=== PATIENT | female | born 1950 | race Two or more races ===

== ENCOUNTER → 2019-12-13 | Outpatient (REF) | payer MEDICARE, MEDICAID ==
[2019-12-13 19:11] LABS: BASO # 0.1 10^3/uL (0.0-0.2); BASO % 0.8 % (0.0-1.0); EOS # 0.2 10^3/uL (0.0-0.5); EOS % 3.3 % (0.0-3.0); HEMOGLOBIN 13.7 g/dl (12.0-15.5); LYMPH # 2.3 10^3/uL (1.5-5.0); LYMPH % 36.2 % (24.0-44.0); MEAN CORPUSCULAR HEMOGLOBIN 26.4 pg (27.0-33.0); MEAN CORPUSCULAR HGB CONC 31.9 g/dl (32.0-36.5); MONO # 0.6 10^3/uL (0.0-0.8); MONO % 8.5 % (0.0-5.0); NEUTROPHILS # 3.3 10^3/uL (1.5-8.5); PLATELET COUNT, AUTOMATED 324 10^3/uL (150-450); RED BLOOD COUNT 5.18 10^6/uL (4.00-5.40); WHITE BLOOD COUNT 6.4 10^3/uL (4.0-10.0)
[2019-12-13 19:28] LABS: HEMOGLOBIN A1c 7.7 %
[2019-12-13 19:44] LABS: ALBUMIN 3.8 GM/DL (3.2-5.2); ALT/SGPT 18 U/L (12-78); BILIRUBIN,TOTAL 0.3 MG/DL (0.2-1.0); BLOOD UREA NITROGEN 21 MG/DL (7-18); C REACTIVE PROTEIN QUANTITATIV < 0.30 MG/DL (0.00-0.30); CALCIUM LEVEL 9.4 MG/DL (8.8-10.2); CARBON DIOXIDE LEVEL 29 MEQ/L (21-32); CHLORIDE LEVEL 105 MEQ/L (98-107); FREE T4 1.56 NG/DL (0.76-1.46); GLOMERULAR FILTRATION RATE > 60.0 (>39); GLUCOSE, FASTING 181 MG/DL (70-100); POTASSIUM SERUM 4.8 MEQ/L (3.5-5.1); SODIUM LEVEL 138 MEQ/L (136-145); THYROID STIMULATING HORMONE 0.122 uIU/ML (0.358-3.740); TOTAL PROTEIN 7.4 GM/DL (6.4-8.2)
[2019-12-13 19:55] LABS: ERYTHROCYTE SEDIMENTATION RATE 6 mm/hr (0-30)
== END ==
LOC: M SFHCADAM 16:23
PROVIDERS: ATTEND Family Medicine
DX: R61 Generalized hyperhidrosis (principal); E11.9 Type 2 diabetes mellitus without complications; R53.83 Other fatigue; R51 Headache; E03.9 Hypothyroidism, unspecified

== ENCOUNTER → 2019-12-13 | Outpatient (CLI) | payer MEDICARE, MEDICAID ==
--- NOTE | 2019-12-18 14:57 | REP ---
Clinical: Nine sweats . Comparison: None . Technique: PA and lateral. Findings: The mediastinum and cardiac silhouette are normal. The lung varghese demonstrate chronic-appearing interstitial changes without focal consolidation, effusion, or pneumothorax. The skeletal structures are intact and normal. Impression: 1. Chronic-appearing changes are suggested. No obvious focal consolidation or effusion. 2. No prior examinations are available for comparison, and if the patient remains symptomatic consider chest CT for further investigation. Electronically Signed by Quique Miranda MD 12/18/2019 02:48 P
== END ==
LOC: M ADAMS 16:11
PROVIDERS: ATTEND Family Medicine
DX: R61 Generalized hyperhidrosis (principal); E11.9 Type 2 diabetes mellitus without complications; R53.83 Other fatigue; R51 Headache; E03.9 Hypothyroidism, unspecified
CPT/HCPCS: 71046; 80053; 83036; 84439; 84443; 85025; 85652; 86140; 86480; G0463

== ENCOUNTER → 2020-01-03 | Outpatient (CLI) | payer MEDICARE, MEDICAID ==
--- NOTE | 2020-01-03 12:29 | REP ---
CT brain: 01/03/2020. Indication: Headache. Technique: Unenhanced axial CT images of the brain were obtained from skull base to vertex with coronal reconstructions provided. Comparison: None. Findings: There is no acute intracranial hemorrhage, acute cortical infarction, mass effect, hydrocephalus or significant fluid within the visualized paranasal sinuses/mastoid air cells. Mild periosteal mucosal thickening is noted within the visualized maxillary sinuses. There are a few small patchy areas of cerebral hemisphere white matter hypoattenuation most consistent with chronic small vessel disease. Impression: No acute intracranial process. Electronically Signed by Carlos Alberto Juarez DO 01/03/2020 12:20 P
== END ==
LOC: M RAD 11:08
PROVIDERS: ATTEND Family Medicine
DX: R51 Headache (principal)
CPT/HCPCS: 70450; G0463

== ENCOUNTER 2020-08-08 02:23 | Emergency (ER) | payer MEDICARE, MEDICAID ==
[~2020-08-08] VITALS: Ht 162.6 cm; Wt 70.9 kg
[2020-08-08 02:23] VITALS: BP 107/53
--- OUTSIDE RECORDS SUMMARY | 2020-08-08 02:30 | CCD ---
Author Author [email or web address] Organization [facility] Address [address] [place] [address] Phone Care Team Providers Care Brick Veneer Maker Name Role Phone Provider, Unassigned Unavailable Unavailable Reason for Referral No Reason for Referral Recorded Problems Includes: Active, inactive, and resolved Problems All Visits Effective Date(s) Provider Condition Stat us Diabetes Mellitus 08/07/[address] [facility] Active Dry Eye Syndrome 08/07/[address] [facility] Active Hypothyroidism 08/07/[address] [facility] Active Plan of Treatment Future Appointments Date Time Location Provider Adult Prophy 12/07/2020 4:25PM [facility] Kacy steiner [facility] Assessments Includes: Assessments for all patient encountersNo Assessments Recorded Instructions Instructions not supported for this document typeNo Instructions Recorded Medical Equipment - Implanted Devices Includes: Current and historical DevicesNo Medical Equipment Recorded Medications Includes: Current and historical Medications Current Medications (continue as prescribed) Peridex 0.12% Mouth/Throat Solution 03/06/2020 - 07/04/2020 Provider: Kaylee Smith DDS Diagnosis: take 1/2 oz swish for 30 seconds and spi t out. Do once in the morning and once at night. SF 1.1% Dental Gel 019 Provider: Neda Salazar DDS Diagnosis: brush 1 per day , do not rinse after Levothyroxine Sodium 150MCG Oral Tablet 08/07/2018 Provider: Diagnosis: Gabapentin 100MG Oral Capsule 08/07/2018 Provider: Diagnosis: ALPRAZolam 0.25MG Oral Tablet 08/07/2018 Provider: Diagnosis: Omeprazole 40MG Oral Capsule Delayed Release 08/07/2018 Provider: Diagnosis: ProAir HFA 108 (90 Base)MCG/ACT Inhalation Aerosol Solution 08/07/2018 Provider: Diagnosis: Ammonium Lactate 12% External Cream 08/07/2018 Prov ider: Diagnosis: [facility] Artificial Tears 1-0.3% Ophthalmic Solution 08/07/2018 Provider: Diagnosis: Patanol 0.1% Ophthalmic Solution 08/07/2018 Provide r: Diagnosis: uses generic olopatadine HCL Chlorhexidine Gluconate 0.12% Mouth/Throat Solution 08/07/19 19 Provider: Neda Salazar DDS Diagnosis: rinse 1 times a day MetFORMIN HCl 1000MG Oral Tablet 08/07/2018 Provide r: Diagnosis: GlipiZIDE XL 10MG Oral Tablet Extended Release 24 Hour 08/07 Provider: Diagnosis: Medications Administered Includes: Administered Medications in patient's chartNo Administered Medications Recorded Vital Signs Includes: Vital Signs from 05/28/2019 through 05/28/2020No Vital Signs Recorded For Specified Dates Results Includes: Results from 05/28/2019 through 05/28/2020No Results Recorded For Specified Dates History of Present Illness History of Present Illness not supported for this document typeNo History of Present Illness Recorded Social History Description Last Updated Smoking status : Never smoker 08/07/2018 Procedures and Surgical/Medical History Includes: Procedures from 05/28/2019 through 05/28/2020 Procedures CPT-4 Diagnosis Performing Provider Service Location Service Date Nutritional Counseling D1310 Encounter for den bonita exam and cleaning w/o abnormal findings Wanda Martinez [facility] 05/28/2020 Oral Hygiene/John Inst D1330 Encounter for de ntal exam and cleaning w/o abnormal findings Wanda Martinez [facility] 05/28/2020 Full Mouth Debridement D4355 Encounter for den bonita exam and cleaning w/o abnormal findings Wanda Martinez [facility] 05/28/2020 Limited Oral Evaluation D0140 Encounter for de ntal exam and cleaning w[facility]o abnormal [facility] Family History Includes: Family History in patient's chartNo Family History Recorded Review of Systems Review of Systems not supported for this document typeNo Review of Systems Recorded Mental Status Mental Status not supported for this document typeNo Mental Status Recorded Functional Status Functional Status not supported for this document typeNo Functional Status Recorded Physical Exam Physical Exam not supported for this document typeNo Physical Exam Recorded Immunizations Includes: Immunizations in patient's chartNo Immunizations Recorded Allergies Includes: Active, inactive, and resolved AllergiesNo Allergies Recorded Encounters Includes: Encounters from 05/28/2019 through 05/28/2020 Encounter Provider Location Date Diagnosis H Adult Prophy Wanda Martinez [facility] 05/28/2020 D Dental Office Visit - 30 Kaylee Smith DDS [facility] 03/06/20 20 Insurance Includes: Active Insurance Policies Plan Name Member ID Group # Subscriber Relationship Effective Da praful 1 - D [facility] Dual Complete [id number] Vickie Trejo Peace Aliya f 11/21/2018 - Unknown 2 - [employer] 414 [id number] Vickie Agaib y Peace Self 3 - [employer] Medicare [id number] Vickie Agaiby Peace Self Advance Directives Includes: Current Advance Directives Directive Pat Aware Third Green Party Effective Date Reviewed Status packet given Pt Bill of Rights, Priv Prac, Ad Dir Yes 09/07/2018 Current and Verified Note: Pt accepted AD packet Ebola Screening Performed Yes 05/28/2020 Current and Verified Note: Within the last month, have you traveled outside of the [place]? - NO Health Concerns Includes: Active Health ConcernsNo Active Health Concerns Recorded Goals Includes: Active GoalsNo Active Goals Recorded Interventions Includes: Interventions for active GoalsNo Interventions Recorded Evaluations & Outcomes Includes: Evaluations & Outcomes for active GoalsNo Outcomes Recorded
--- OUTSIDE RECORDS SUMMARY | 2020-08-08 02:30 | CCD ---
Author Author 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 97805 8001 ALLERGIES No Known Allergies ENCOUNTERS from 1950 to 2020-06-16 Encounter Location Date Provider Diagnosis [address] [address] May, Lyric Odette-Tartell IMMUNIZATIONS No Information SOCIAL HISTORY Tobacco Use: Social History Observation Description Date Details (start date - stop date) Never Smoker Sex Assigned At : Social History Observation Description Sex Assigned At Unknown Audit Question Answer Notes Total Score: 0 Interpretation: Alcohol Education Drug and Alcohol Question Answer Notes Total Score: 0 Interpretation: No problems reported Alcohol Screening: Question Answer Notes Did you have a drink containing alcohol in the past year? No Points 0 Interpretation Negative Tobacco Use: Question Answer Notes Are you a: never smoker REASON FOR REFERRAL No Information VITAL SIGNS No information MEDICATIONS Medication SIG (Take, Route, Frequency, Duration) Notes Start Da te End Date Status Omeprazole 40 MG 1 capsule 30 minutes before morning meal Orally Once a day for 30 day(s) Active Ferrous Gluconate 324 (38 Fe) MG 1 tablet with water o r juice between meals Orally Once a day for 90 days Ac tive Amitriptyline HCl 25 MG 1 tablet at bedtime Orally Once a day fo r 30 day(s) Jan, Active Vitamin D 50 MCG (1999 UT) 1 capsule Orally Once a day for 30 day(s) Active Gabapentin 100 MG 1 capsule Orally Once a day for 90 days Active Levothyroxine Sodium 125 MCG 1 tablet in the morning o n an empty stomach Orally Once a day for 90 days November, Active Metformin HCl 1000 MG 1 tablet with a meal Orally bid for 90 days Active Sucralfate 1 GM 1 tablet on an empty stomach Orally four times daily Active Blood Glucose Test - 1 strip In Vitro twice daily Active Januvia 50 MG 1 tablet Orally Daily for 90 days Active GlipiZIDE 10 MG 1 tablet 30 minutes before b reakfast Orally twice daily for 90 days Active Simvastatin 20 MG 1 tablet in the evening Orally Once a day for 90 da ys Active PROCEDURES No Information RESULTS No Results REASON FOR VISIT dizzy/swaety MEDICAL (GENERAL) HISTORY Type Description Date Medical History diabetes mellitus type 2 Medical History hyperlipidemia Medical History hypothyroidism Medical History iron deficiency Surgical History cataracts, bilat Surgical History retina surgery on the R (detachment) Goals Section No Information Health Concerns No Information MEDICAL EQUIPMENT No Information MENTAL STATUS No Information FUNCTIONAL STATUS No Information ASSESSMENTS No Information PLAN OF TREATMENT Medication Medication Name Sig Start Date Stop Date GlipiZIDE 10 MG 1 tablet 30 minutes before b reakfast Orally twice daily for 90 days Januvia 50 MG 1 tablet Orally Daily for 90 days Gabapentin 100 MG 1 capsule Orally Once a day for 90 days Levothyroxine Sodium 125 MCG 1 tablet in the morning o n an empty stomach Orally Once a day for 90 days November, Metformin HCl 1000 MG 1 tablet with a meal Orally bid for 90 day s Simvastatin 20 MG 1 tablet in the evening Orally Once a day for 90 days Amitriptyline HCl 25 MG 1 tablet at bedtime Orally Once a da y for 30 day(s) Jan, Ferrous Gluconate 324 (38 Fe) MG 1 tablet with water o r juice between meals Orally Once a day for 90 days Insurance Providers Payer Name Payer Address Payer Phone Insured Name Patient Relati onship to Insured Coverage Start Date Coverage End Date [facility] [address] [facility] [address] PEACE,HAYDEE self MEDICAID [facility] [address] [facility] [id number] [phone] PEACE,HAYDEE self
--- OUTSIDE RECORDS SUMMARY | 2020-08-08 02:30 | CCD ---
Author Author [facility] Organization [facility] [employer] [facility] [facility] Address Unknown Phone Unavailable Care Team Providers Care Cabin Worker Name Role Phone Odette-Tartell, Lyric Unavailable PROBLEMS Type Condition ICD9-CM Code [id number] Code Onset Dates Condition S tatus SNOMED Code Notes Problem Depression, unspecified depression type F32.9 Active 99114522 Problem Insomnia, unspecified type G47.00 Active 31754 2000 Problem Diabetes mellitus type 2 in nonobese E11.9 Act andrea 749450307 Problem Hypothyroidism, unspecified type E03.9 Active 66128192 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 33738 8001 ALLERGIES No Known Allergies ENCOUNTERS from 1950 to 2020-08-06 Encounter Location Date Provider Diagnosis [facility] [address] [place] [address] 14 Jul, Lyric Odette-Tartell IMMUNIZATIONS No Information SOCIAL HISTORY [...] day fo r 30 day(s) Jan, Active Metformin HCl 1000 MG 1 tablet with a meal Orally bid for 90 days Active Gabapentin 100 MG 1 capsule Orally Once a day for 90 days Active Levothyroxine Sodium 125 MCG 1 tablet in the morning o n an empty stomach Orally Once a day for 90 days November, Active Vitamin D 50 MCG (1999 UT) 1 capsule Orally Once a day for 90 day(s) Active Sucralfate 1 GM 1 tablet on [...] Information RESULTS No Results REASON FOR VISIT refill MEDICAL (GENERAL) HISTORY Type Description Date Medical [...] Once a day for 90 days November, Amitriptyline HCl 25 MG 1 tablet at bedtime Orally Once a da y for 30 day(s) Jan, Vitamin D 50 MCG (1999 UT) 1 capsule Orally Once a day for 90 da y(s) Simvastatin 20 MG 1 tablet in the evening Orally Once a day for 90 days Metformin HCl 1000 MG 1 tablet with a meal Orally bid for 90 day s Ferrous Gluconate 324 (38 Fe) MG 1 tablet with water o r juice between meals Orally Once a day for 90 days Insurance Providers Payer Name Payer Address Payer Phone Insured Name Patient Relati onship to Insured Coverage Start Date Coverage End Date [facility] [address] [facility] [id number] PEACESAMIRA self MEDICAID [employer] [address] [facility] [id number] HAYDEE PLUNKETT self
--- OUTSIDE RECORDS SUMMARY | 2020-08-08 02:30 | CCD ---
Author Author [facility] Organization [facility] [employer] [facility]st ems Address Unknown Phone Unavailable Care Team Providers Care Rehab Therapist Name Role Phone Odette-Tartell, Lyric Unavailable PROBLEMS Type Condition ICD9-CM Code [id number] Code Onset Dates Condition S tatus SNOMED Code Notes Problem Depression, unspecified depression type F32.9 Active 98637308 Problem Insomnia, unspecified type G47.00 Active 49772 2000 Problem Diabetes mellitus type 2 in nonobese E11.9 Act andrea 684649921 Problem Hypothyroidism, unspecified type E03.9 Active 35098354 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
--- OUTSIDE RECORDS SUMMARY | 2020-08-08 02:30 | CCD ---
Author Author [employer] [facility] Organization [employer] [facility] Address Unknown Phone Unavailable Care Team Providers Care State Trooper Name Role Phone Lyric Perdomo Unavailable PROBLEMS Type Condition ICD9-CM Code [id number] Code Onset Dates Condition S tatus SNOMED Code Notes Problem Depression, unspecified depression type F32.9 Active 52195242 Problem Insomnia, unspecified type G47.00 Active 81189 2000 Problem Diabetes mellitus type 2 in nonobese E11.9 Act andrea 784927547 Problem Hypothyroidism, unspecified type E03.9 Active 20527775 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 [address] [facility] [id number] PEACE,SAMIRA self MEDICAID [employer] [address] [facility] [address] HAYDEE PLUNKETT
--- OUTSIDE RECORDS SUMMARY | 2020-08-08 02:31 | CCD ---
Author Author [facility] Address Unknown Phone Unavailable Care Team Providers Care Replenishment Associate Name Role Phone Cassius Jc MD Unavailable Unavailable Saini Cassius Snowden MD Unavailable Unavailable Saini Cassius Snowden MD Unavailable Unavailable Saini Isi, Cassius Aguayo MD Unavailable Unavailable Cassius Jc MD Unavailable Unavailable Saini Isi, Cassius Aguayo MD Unavailable Unavailable Saini Isi, Cassius Aguayo MD Unavailable Unavailable Saini Cassius Snowden MD Unavailable Unavailable Saini Isi, Cassius Aguayo MD Unavailable Unavailable Parveen Snowden, Cassius Aguayo MD Unavailable Unavailable Cassius Jc MD Unavailable Unavailable Parveen Snowden, Cassius Aguayo MD Unavailable Unavailable Saini Isi, Cassius Aguayo MD Unavailable Unavailable Saini Isi, Cassisu Aguayo MD Unavailable Unavailable Parveen Snowden, Cassius Aguayo MD Unavailable Unavailable Parveen Snowden, Cassius Aguayo MD Unavailable Unavailable Parveen Snowden, Cassius Aguayo MD Unavailable Unavailable Saini Isi, Cassius Aguayo MD Unavailable Unavailable Saini Dator, Cassius Aguayo MD Unavailable Unavailable Saini Dator, Cassius Aguayo MD Unavailable Unavailable Saini Dator, Cassius Aguayo MD Unavailable Unavailable Saini Dator, Cassius Aguayo MD Unavailable Unavailable Saini Dator, Cassius Aguayo MD Unavailable Unavailable Saini Dator, Cassius Aguayo MD Unavailable Unavailable Saini Dator, Cassius Aguayo MD Unavailable Unavailable Saini Dator, Cassius Aguayo MD Unavailable Unavailable Saini Dator, Cassius Aguayo MD Unavailable Unavailable Saini Dator, Cassius Aguayo MD Unavailable Unavailable Saini Dator, Cassius Aguayo MD Unavailable Unavailable Saini Dator, Cassius Aguayo MD Unavailable Unavailable Saini Dator, Cassius Aguayo MD Unavailable Unavailable Saini Dator, Cassius Aguayo MD Unavailable Unavailable Saini Dator, Cassius Aguayo MD Unavailable Unavailable Saini Dator, Cassius Aguayo MD Unavailable Unavailable Saini Dator, Cassius Aguayo MD Unavailable Unavailable Saini Dator, Cassius Aguayo MD Unavailable Unavailable Saini Dator, Cassius Aguayo MD Unavailable Unavailable Saini Dator, Cassius Aguayo MD Unavailable Unavailable Saini Dator, Cassius Aguayo MD Unavailable Unavailable Saini Dator, Cassius Aguayo MD Unavailable Unavailable Saini Dator, Cassius Aguayo MD Unavailable Unavailable Saini Dator, Cassius Aguayo MD Unavailable Unavailable Saini Dator, Cassius Aguayo MD Unavailable Unavailable Saini Dator, Cassius Aguayo MD Unavailable Unavailable Saini Dator, Cassius Aguayo MD Unavailable Unavailable Saini Dator, Cassius Aguayo MD Unavailable Unavailable Saini Dator, Cassius Aguayo MD Unavailable Unavailable Saini Dator, Cassius Aguayo MD Unavailable Unavailable Saini Dator, Cassius Aguayo MD Unavailable Unavailable Saini Dator, Cassius Aguayo MD Unavailable Unavailable Saini Dator, Cassius Aguayo MD Unavailable Unavailable Saini Dator, Cassius Aguayo MD Unavailable Unavailable Linda Leo Unavailable Unavail able Linda Leo Unavailable Unavail able Porfirio Bang MD Unavailable Unavailable Porfirio Bang MD Unavailable Unavailable Porfirio Bang MD Unavailable Unavailable Porfirio Bang MD Unavailable Unavailable Porfirio Bang MD Unavailable Unavailable Porfirio Bang MD Unavailable Unavailable Porfirio Bang MD Unavailable Unavailable Porfirio Bang MD Unavailable Unavailable Porfirio Bang MD Unavailable Unavailable Porfirio Bang MD Unavailable Unavailable Michelle [facility], [place] Unavailable Saini Dator, Cassius Aguayo MD Unavailable Unavailable Saini Dator, Cassius Aguayo MD Unavailable Unavailable Saini Dator, Cassius Aguayo MD Unavailable Unavailable Saini Dator, Cassius Aguayo MD Unavailable Unavailable Saini Dator, Cassius Aguayo MD Unavailable Unavailable Saini Dator, Cassius Aguayo MD Unavailable Unavailable Saini Dator, Cassius Aguayo MD Unavailable Unavailable Saini Dator, Cassius Aguayo MD Unavailable Unavailable Saini Dator, Cassius Aguayo MD Unavailable Unavailable Saini Dator, Cassius Aguayo MD Unavailable Unavailable Saini Dator, Cassius Aguayo MD Unavailable Unavailable Saini Dator, Cassius Aguayo MD Unavailable Unavailable Saini Dator, Cassius Aguayo MD Unavailable Unavailable Saini Dator, Cassius Aguayo MD Unavailable Unavailable Saini Dator, Cassius Aguayo MD Unavailable Unavailable Saini Dator, Cassius Aguayo MD Unavailable Unavailable Saini Dator, Cassius Aguayo MD Unavailable Unavailable Saini Dator, Cassius Aguayo MD Unavailable Unavailable Saini Dator, Cassius Aguayo MD Unavailable Unavailable Saini Dator, Cassius Aguayo MD Unavailable Unavailable Saini Dator, Cassius Aguayo MD Unavailable Unavailable Saini Dator, Cassius Aguayo MD Unavailable Unavailable Saini Dator, Cassius Aguayo MD Unavailable Unavailable Saini Dator, Cassius Aguayo MD Unavailable Unavailable Saini Dator, Cassius Aguayo MD Unavailable Unavailable Saini Dator, Cassius Aguayo MD Unavailable Unavailable Saini Dator, Cassius Aguayo MD Unavailable Unavailable Saini Dator, Cassius Aguayo MD Unavailable Unavailable Saini Dator, Cassius Aguayo MD Unavailable Unavailable Saini Dator, Cassius Aguayo MD Unavailable Unavailable Saini Dator, Cassius Aguayo MD Unavailable Unavailable Saini Dator, Cassius Aguayo MD Unavailable Unavailable Saini Dator, Cassius Aguayo MD Unavailable Unavailable Saini Dator, Cassius Aguayo MD Unavailable Unavailable Saini Dator, Cassius Aguayo MD Unavailable Unavailable Saini Dator, Cassius Aguayo MD Unavailable Unavailable Saini Dator, Cassius Aguayo MD Unavailable Unavailable Saini Dator, Cassius Aguayo MD Unavailable Unavailable Saini Dator, Cassius Aguayo MD Unavailable Unavailable Saini Dator, Cassius Aguayo MD Unavailable Unavailable Saini Dator, Cassius Aguayo MD Unavailable Unavailable Saini Dator, Cassius Aguayo MD Unavailable Unavailable Saini Dator, Cassius Aguayo MD Unavailable Unavailable Saini Dator, Cassius Aguayo MD Unavailable Unavailable Saini Dator, Cassius Aguayo MD Unavailable Unavailable Saini Dator, S Dede LANIER Unavailable Unavailable Saini Dator, S Dede LANIER Unavailable Unavailable Saini Dator, Cassius Aguayo MD Unavailable Unavailable Saini Dator, Cassius Aguayo MD Unavailable Unavailable Saini Dator, S Dede LANIER Unavailable Unavailable Saini Dator, S Dede LANIER Unavailable Unavailable Saini Dator, S Dede LANIER Unavailable Unavailable Abdulkadir Kwok MD Unavailable Unavailable Abdulkadir Kwok MD Unavailable Unavailable Abdulkadir Kwok MD Unavailable Unavailable Abdulkadir Kwok MD Unavailable Unavailable Abdulkadir Kwok MD Unavailable Unavailable Abdulkadir Kwok MD Unavailable Unavailable Abdulkadir Kwok MD Unavailable Unavailable Abdulkadir Kwok MD Unavailable Unavailable Abdulkadir Kwok MD Unavailable Unavailable Abdulkadir Kwok MD Unavailable Unavailable Abdulkadir Kwok MD Unavailable Unavailable Abdulkadir Kwok MD Unavailable Unavailable Abdulkadir Kwok MD Unavailable Unavailable Abdulkadir Kwok MD Unavailable Unavailable Abdulkadir Kwok MD Unavailable Unavailable Abdulkadir Kwok MD Unavailable Unavailable Abdulkadir Kwok MD Unavailable Unavailable Abdulkadir Kwok MD Unavailable Unavailable Abdulkadir Kwok MD Unavailable Unavailable Abdulkadir Kwok MD Unavailable Unavailable Abdulkadir Kwok MD Unavailable Unavailable Abdulkadir Kwok MD Unavailable Unavailable Abdulkadir Kwok MD Unavailable Unavailable Abdulkadir Kwok MD Unavailable Unavailable Abdulkadir Kwok MD Unavailable Unavailable Abdulkadir Kwok MD Unavailable Unavailable Abdulkadir Kwok MD Unavailable Unavailable Abdulkadir Kwok MD Unavailable Unavailable Abdulkadir Kwok MD Unavailable Unavailable Abdulkadir Kwok MD Unavailable Unavailable Abdulkadir Kwok MD Unavailable Unavailable Abdulkadir Kwok MD Unavailable Unavailable Abdulkadir Kwok MD Unavailable Unavailable Abdulkadir Kwok MD Unavailable Unavailable Abdulkadir Kwok MD Unavailable Unavailable Abdulkadir Kwok MD Unavailable Unavailable Sundar, Abdulkadir Phamoy MD Unavailable Unavailable Sundar, Abdulkadir Ajoy MD Unavailable Unavailable Sundar, Abdulkadir Ajoy MD Unavailable Unavailable Sundar, Abdulkadir Ajoy MD Unavailable Unavailable Sundar, Abdulkadir Ajoy MD Unavailable Unavailable Sundar, Abdulkadir Ajoy MD Unavailable Unavailable Sundar, Abdulkadir Ajoy MD Unavailable Unavailable Sundar, Panchal Ajoy MD Unavailable Unavailable Sundar, Panchal Ajoy MD Unavailable Unavailable Sundar, Panchal Ajoy MD Unavailable Unavailable Sundar, Panchal Ajoy MD Unavailable Unavailable Sundar, Panchal Ajoy MD Unavailable Unavailable Sundar, Panchal Ajoy MD Unavailable Unavailable Sundar, Panchal Ajoy MD Unavailable Unavailable Sundar, Panchal Ajoy MD Unavailable Unavailable Sundar, Panchal Ajoy MD Unavailable Unavailable Sundar, Panchal Ajoy MD Unavailable Unavailable Sundar, Panchal Ajoy MD Unavailable Unavailable Sundar, Panchal Ajoy MD Unavailable Unavailable Sundar, Panchal Ajoy MD Unavailable Unavailable Sundar, Panchal Ajoy MD Unavailable Unavailable Sundar, Panchal Ajoy MD Unavailable Unavailable Sundar, Panchal Ajoy MD Unavailable Unavailable Sundar, Panchal Ajoy MD Unavailable Unavailable Sundar, Panchal Ajoy MD Unavailable Unavailable Sundar, Panchal Ajoy MD Unavailable Unavailable Sundar, Panchal Ajoy MD Unavailable Unavailable Sundar, Panchal Ajoy MD Unavailable Unavailable Sundar, Panchal Ajoy MD Unavailable Unavailable Sundar, Panchal Ajoy MD Unavailable Unavailable Sundar, Panchal Ajoy MD Unavailable Unavailable Sundar, Panchal Ajoy MD Unavailable Unavailable Sundar, Panchal Ajoy MD Unavailable Unavailable Sundar, Panchal Ajoy MD Unavailable Unavailable Sundar, Panchal Ajoy MD Unavailable Unavailable Sundar, Panchal Ajoy MD Unavailable Unavailable Sundar, Panchal Ajoy MD Unavailable Unavailable Sundar, Panchal Ajoy MD Unavailable Unavailable Sundar, Panchal Ajoy MD Unavailable Unavailable LuisKaylee Yelisa DDS Unavailable Unavailable Luis Kwi Yeon DDS Unavailable Unavailable Luis, Kwi Yeon DDS Unavailable Unavailable Re-disclosure Warning The records that you are about to access may contain information from federally-assisted alcohol or drug abuse programs. If such information is present, then the following federally mandated warning applies: This information has been disclosed to you from records protected by federal confidentiality rules (42 CFR part 2). The federal rules prohibit you from making any further disclosure of this information unless further disclosure is expressly permitted by the written consent of the person to whom it pertains or as otherwise permitted by 42 CFR part 2. A general authorization for the release of medical or other information is NOT sufficient for this purpose. The Federal rules restrict any use of the information to criminally investigate or prosecute any alcohol or drug abuse patient.The records that you are about to access may contain highly sensitive health information, the redisclosure of which is protected by Article 27-F of the [facility] Public Health law. If you continue you may have access to information: Regarding HIV / AIDS; Provided by facilities licensed or operated by the [facility] Office of Mental Health; or Provided by the [facility] Office for People With Developmental Disabilities. If such information is present, then the following [facility] mandated warning applies: This information has been disclosed to you from confidential records which are protected by state law. State law prohibits you from making any further disclosure of this information without the specific written consent of the person to whom it pertains, or as otherwise permitted by law. Any unauthorized further disclosure in violation of state law may result in a fine or usp sentence or both. A general authorization for the release of medical or other information is NOT sufficient authorization for further disc losure. Advance Directives Directive Description Air Pollution Engineer Care Director Status Observation Descr iption Data Source(s) Ebola Screening Performed completed Ebol a Screening Performed [facility] Note: Within the last month, have you tr aveled outside of the [place]? -NO Encounters Encounter Providers Location Date Indications Data Source(s ) Unknown [address] [facility] [address] 08/06/2020 12:00:00 AM EST eCW1 ([facility]) Unknown [address] [facility] [place] [address] 08/06/2020 12:00:00 AM EST eCW1 ([facility]) Unknown [address] [facility] [place] [address] 08/06/2020 12:00:00 AM EST eCW1 ([facility]) Unknown [address] [facility] [place] [address] 06/15/2020 12:00:00 AM EST eCW1 ([facility]) Unknown<td ID="encounterTypeDescriptionI D0">H Adult Prophy</td><td>Wanda Martinez [facility]</td><td>[facility]</td><td>05/28/2020</td><td></td> Attender: Wanda Martinez [facility] 05/28/2020 09:38:00 AM EST - 05/28/2020 10:53:00 AM EST [facility] ([facility]) Unknown [address] [facility] [address] 05/20/2020 12:00:00 AM EDT eCW1 ([facility]) Unknown<td ID="encounterTypeDescriptionI D1">D Dental Office Visit - 30</td><td>Kaylee Smith DDS</td><td>[facility]</td><td>03/06/2020</td><td></td> Attender: Kaylee Smith DDS [facility] 03/06/2020 02:41:00 PM EDT - 03/06/2020 03:18:00 PM EDT [facility] ([facility]) TeleMedicine Phone E/M by Phys 11-20 Min [address] [place] [address] 01/22/2020 12:00:00 AM EDT eCW1 ([facility]) Outpatient 01/08/2020 11:31:00 AM EDT [facility] Unknown [address] [facility] [address] 01/07/2020 12:00:00 AM EDT eCW1 ([facility]) Unknown [address] [facility] [address] 01/03/2020 12:00:00 AM EDT eCW1 ([facility]) Unknown [address] [facility] [place] [address] 12/20/2019 12:00:00 AM EDT eCW1 ([facility]) Outpatient [address] [facility] [address] 12/13/2019 12:00:00 AM EDT eCW1 ([facility]) Outpatient Attender: Porfirio Ignacio nder: Rocio Leo PAAttender: Jordan Kwok MDReferrer: Dede Snowden MD 10/04/2019 12:00:0 0 PM EDT [facility] Outpatient Attender: Dede Snowden MD 2018 10:29:00 AM EST [facility] Immunizations Vaccine Date Status Description Data Source(s) INFLUENZA VACCINE QUADRIVALENT (65 YR UP)/MF59 C.1/PF 05/28/2020 12:00:00 AM EST completed [facility] Medications Medication Brand Name Start Date Product Form Dose Route Admi nistrative Instructions Pharmacy Instructions Status Indications Reaction Description Data Source(s) 324 mg (38 mg iron) 05/21/2020 12:00:00 AM EDT tablet 30 TAKE ONE TABLET BY MOUTH EVERY DAY BETWEEN MEALS WITH WATER OR JUICE TAKE ONE TABLET BY MOUTH EVERY DAY BETWEEN MEALS WITH WATER OR JUICE SOLD: 06/29/2020 [facility] 324 mg (38 mg iron) 05/21/2020 12:00:00 AM EDT tablet 30 TAKE ONE TABLET BY MOUTH EVERY DAY BETWEEN MEALS WITH WATER OR JUICE TAKE ONE TABLET BY MOUTH EVERY DAY BETWEEN MEALS WITH WATER OR JUICE SOLD: 05/22/2020 [facility] 10 mg 05/20/2020 12:00:00 AM EDT tablet 170 TAKE ONE TABLET BY MOUTH TWICE A DAY 30 MINUTES BEFORE MEALS TAKE ONE TABLET BY MOUTH TWICE A DAY 30 MINUTES BEFORE MEALS SOLD: 05/22/2020 [facility] 50 mg 04/20/2020 12:00:00 AM EDT tablet 90 TAKE ONE TABLET BY MOUTH EVERY DAY TAKE ONE TABLET BY MOUTH EVERY DAY SOLD: 04/22/2020 [facility] 10 mg 04/20/2020 12:00:00 AM EDT tablet 30 TAKE ONE TABLET BY MOUTH EVERY DAY AT BEDTIME TAKE ONE TABLET BY MOUTH EVERY DAY AT BEDTIME SOLD: 04/22/2020 [facility] BLOOD SUGAR DIAGNOSTIC 04/03/2020 12:00:00 AM EDT strip 50 USE TO TEST TWO TIMES A DAY USE TO TEST TWO TIMES A DAY SOLD: 06/29/2020 [facility] BLOOD SUGAR DIAGNOSTIC 04/03/2020 12:00:00 AM EDT strip 50 USE TO TEST TWO TIMES A DAY USE TO TEST TWO TIMES A DAY SOLD: 04/10/2020 [facility] BLOOD SUGAR DIAGNOSTIC 04/03/2020 12:00:00 AM EDT strip 50 USE TO TEST TWO TIMES A DAY USE TO TEST TWO TIMES A DAY SOLD: 05/22/2020 [facility] Amitriptyline Hydrochloride 25 MG Oral Tablet AMITRIPTYLINE HCL 04/02/2020 12:00:00 AM EDT tablet 30 TAKE ONE TABLET BY MOUTH AT BEDTIME TAKE ONE TABLET BY MOUTH AT BEDTIME SOLD: 04/03/2020 [facility] chlorhexidine gluconate 1.2 MG/ML Mouthw bárbara [Peridex] Peridex 0.12% Mouth/Throat Solution Peridex 0.12% Mouth/Throat Solution 03/06/2020 12:00:00 AM EDT active chlorhexidine gluconate 1 .2 MG/ML Mouthwash [Peridex] [facility] ([facility]) Metformin hydrochloride 1000 MG Oral Tablet 1,000 mg METFORM IN HCL 02/25/2020 12:00:00 AM EDT tablet 180 TAKE ONE TABLET BY MOUTH TWICE A DAY WITH FOOD TAKE ONE TABLET BY MOUTH TWICE A DAY WITH FOOD SOLD: 05/20/2020 [facility] 20 mg 02/25/2020 12:00:00 AM EDT tablet 90 TAKE ONE TABLET BY MOUTH EVERY EVENING TAKE ONE TABLET BY MOUTH EVERY EVENING SOLD: 02/26/2020 [facility] 1,000 mg 02/25/2020 12:00:00 AM EDT tablet 180 TAKE ONE TABLET BY MOUTH TWICE A DAY WITH FOOD TAKE ONE TABLET BY MOUTH TWICE A DAY WITH FOOD SOLD: 02/26/2020 [facility] 125 mcg 01/28/2020 12:00:00 AM EDT tablet 90 TAKE ONE TABLET BY MOUTH EVERY MORNING ON AN EMPTY STOMACH TAKE ONE TABLET BY MOUTH EVERY MORNING O N AN EMPTY STOMACH SOLD: 04/22/2020 [facility] 125 mcg 01/28/2020 12:00:00 AM EDT tablet 90 TAKE ONE TABLET BY MOUTH EVERY MORNING ON AN EMPTY STOMACH TAKE ONE TABLET BY MOUTH EVERY MORNING O N AN EMPTY STOMACH SOLD: 01/29/2020 [facility] 100 mg 01/22/2020 12:00:00 AM EDT capsule 90 TAKE ONE CAPSULE BY MOUTH EVERY DAY TAKE ONE CAPSULE BY MOUTH EVERY DAY SOLD: 01/24/2020 [facility] Amitriptyline Hydrochloride 25 MG Oral Tablet Amitript yline HCl 25 MG Amitriptyline HCl 25 MG 01/22/2020 12:00:00 AM EDT 1.0 {tablet_at_b edtime} active Amitriptyline HCl 25 MG [facility] Amitriptyline Hydrochloride 25 MG Oral Tablet Amitript yline HCl 25 MG Amitriptyline HCl 25 MG 01/22/2020 12:00:00 AM EDT 1.0 {tablet_at_b edtime} active Amitriptyline HCl 25 MG e 1 ([facility]) Amitriptyline Hydrochloride 25 MG Oral Tablet Amitript yline HCl 25 MG Amitriptyline HCl 25 MG 01/22/2020 12:00:00 AM EDT 1.0 {tablet_at_b edtime} active Amitriptyline HCl 25 MG e 1 ([facility]) Amitriptyline Hydrochloride 25 MG Oral Tablet Amitript yline HCl 25 MG Amitriptyline HCl 25 MG 01/22/2020 12:00:00 AM EDT 1.0 {tablet_at_b edtime} active Amitriptyline HCl 25 MG e 1 ([facility]) 137 mcg 01/22/2020 12:00:00 AM EDT tablet 90 TAKE ONE TABLET BY MOUTH EVERY MORNING ON AN EMPTY STOMACH TAKE ONE TABLET BY MOUTH EVERY MORNING O N AN EMPTY STOMACH SOLD: 01/24/2020 [facility] Amitriptyline Hydrochloride 25 MG Oral Tablet Amitript yline HCl 25 MG Amitriptyline HCl 25 MG 01/22/2020 12:00:00 AM EDT 1.0 {tablet_at_b edtime} active Amitriptyline HCl 25 MG e 1 ([facility]) Amitriptyline Hydrochloride 25 MG Oral Tablet Amitript yline HCl 25 MG Amitriptyline HCl 25 MG 01/22/2020 12:00:00 AM EDT 1.0 {tablet_at_b edtime} active Amitriptyline HCl 25 MG e 1 ([facility]) 10 mg 01/21/2020 12:00:00 AM EDT tablet 60 TAKE ONE TABLET BY MOUTH TWO TIMES A DAY 30 MINUTES BEFORE MEALS TAKE ONE TABLET BY MOUTH TWO TIMES A DAY 30 MINUTES BEFORE MEALS SOLD: 01/22/2020 [facility] 10 mg 01/21/2020 12:00:00 AM EDT tablet 60 TAKE ONE TABLET BY MOUTH TWO TIMES A DAY 30 MINUTES BEFORE MEALS TAKE ONE TABLET BY MOUTH TWO TIMES A DAY 30 MINUTES BEFORE MEALS SOLD: 02/26/2020 [facility] 10 mg 01/21/2020 12:00:00 AM EDT tablet 60 TAKE ONE TABLET BY MOUTH TWO TIMES A DAY 30 MINUTES BEFORE MEALS TAKE ONE TABLET BY MOUTH TWO TIMES A DAY 30 MINUTES BEFORE MEALS SOLD: 04/01/2020 [facility] 10 mg 01/21/2020 12:00:00 AM EDT tablet 60 TAKE ONE TABLET BY MOUTH TWO TIMES A DAY 30 MINUTES BEFORE MEALS TAKE ONE TABLET BY MOUTH TWO TIMES A DAY 30 MINUTES BEFORE MEALS SOLD: 04/22/2020 [facility] 324 mg (38 mg iron) 01/09/2020 12:00:00 AM EDT tablet 30 TAKE ONE TABLET BY MOUTH EVERY DAY BETWEEN MEALS WITH WATER OR JUICE TAKE ONE TABLET BY MOUTH EVERY DAY BETWEEN MEALS WITH WATER OR JUICE SOLD: 04/01/2020 [facility] 50 mcg (2,000 unit) 01/09/2020 12:00:00 AM EDT capsule 30 TAKE ONE CAPSULE BY MOUTH EVERY DAY TAKE ONE CAPSULE BY MOUTH EVERY DAY SOLD: 01/13/2020 [facility] 50 mcg (2,000 unit) 01/09/2020 12:00:00 AM EDT capsule 30 TAKE ONE CAPSULE BY MOUTH EVERY DAY TAKE ONE CAPSULE BY MOUTH EVERY DAY SOLD: 02/26/2020 [facility] 10 mg 01/09/2020 12:00:00 AM EDT tablet 30 TAKE ONE TABLET BY MOUTH EVERY DAY 30 MINUTES BEFORE BREAKFAST TAKE ONE TABLET BY MOUTH EVERY DAY 30 ID NUTES BEFORE BREAKFAST SOLD: 01/13/2020 [facility] 324 mg (38 mg iron) 01/09/2020 12:00:00 AM EDT tablet 30 TAKE ONE TABLET BY MOUTH EVERY DAY BETWEEN MEALS WITH WATER OR JUICE TAKE ONE TABLET BY MOUTH EVERY DAY BETWEEN MEALS WITH WATER OR JUICE SOLD: 01/13/2020 [facility] 50 mcg (2,000 unit) 01/09/2020 12:00:00 AM EDT capsule 30 TAKE ONE CAPSULE BY MOUTH EVERY DAY TAKE ONE CAPSULE BY MOUTH EVERY DAY SOLD: 04/22/2020 [facility] 1,000 mg 01/09/2020 12:00:00 AM EDT tablet 60 TAKE ONE TABLET BY MOUTH TWICE A DAY WITH MEALS TAKE ONE TABLET BY MOUTH TWICE A DAY WITH MEALS SOLD: 01/13/2020 [facility] 324 mg (38 mg iron) 01/09/2020 12:00:00 AM EDT tablet 30 TAKE ONE TABLET BY MOUTH EVERY DAY BETWEEN MEALS WITH WATER OR JUICE TAKE ONE TABLET BY MOUTH EVERY DAY BETWEEN MEALS WITH WATER OR JUICE SOLD: 02/26/2020 [facility] 324 mg (38 mg iron) 01/09/2020 12:00:00 AM EDT tablet 30 TAKE ONE TABLET BY MOUTH EVERY DAY BETWEEN MEALS WITH WATER OR JUICE TAKE ONE TABLET BY MOUTH EVERY DAY BETWEEN MEALS WITH WATER OR JUICE SOLD: 04/22/2020 [facility] 50 mcg (2,000 unit) 01/09/2020 12:00:00 AM EDT capsule 30 TAKE ONE CAPSULE BY MOUTH EVERY DAY TAKE ONE CAPSULE BY MOUTH EVERY DAY SOLD: 06/29/2020 [facility] Amitriptyline Hydrochloride 10 MG Oral Tablet Amitript yline HCl 10 MG Amitriptyline HCl 10 MG 01/03/2020 12:00:00 AM EDT 1.0 {tablet_at_b edtime} active Amitriptyline HCl 10 MG e CW1 ([facility]) 10 mg 01/03/2020 12:00:00 AM EDT tablet 30 TAKE ONE TABLET BY MOUTH EVERY DAY AT BEDTIME TAKE ONE TABLET BY MOUTH EVERY DAY AT BEDTIME SOLD: 01/06/2020 [facility] Amitriptyline Hydrochloride 10 MG Oral Tablet Amitript yline HCl 10 MG Amitriptyline HCl 10 MG 01/03/2020 12:00:00 AM EDT 1.0 {tablet_at_b edtime} active Amitriptyline HCl 10 MG e CW1 ([facility]) 125 mcg 12/21/2019 12:00:00 AM EDT tablet 30 TAKE ONE TABLET BY MOUTH EVERY MORNING ON AN EMPTY STOMACH TAKE ONE TABLET BY MOUTH EVERY MORNING O N AN EMPTY STOMACH SOLD: 12/23/2019 [facility] Levothyroxine Sodium 0.125 MG Oral Tablet Levothyroxin e Sodium 125 MCG Levothyroxine Sodium 125 MCG 12/20/2019 12:00:00 AM EDT active Levothyroxine Sodium 125 MCG eCW1 ([facility]) Levothyroxine Sodium 0.125 MG Oral Tablet Levothyroxin e Sodium 125 MCG Levothyroxine Sodium 125 MCG 12/20/2019 12:00:00 AM EDT active Levothyroxine Sodium 125 MCG eCW1 ([facility]) Levothyroxine Sodium 0.125 MG Oral Tablet Levothyroxin e Sodium 125 MCG Levothyroxine Sodium 125 MCG 12/20/2019 12:00:00 AM EDT active Levothyroxine Sodium 125 MCG eCW1 ([facility]) Levothyroxine Sodium 0.125 MG Oral Tablet Levothyroxin e Sodium 125 MCG Levothyroxine Sodium 125 MCG 12/20/2019 12:00:00 AM EDT active Levothyroxine Sodium 125 MCG eCW1 ([facility]) Levothyroxine Sodium 0.125 MG Oral Tablet Levothyroxin e Sodium 125 MCG Levothyroxine Sodium 125 MCG 12/20/2019 12:00:00 AM EDT active Levothyroxine Sodium 125 MCG eCW1 ([facility]) Levothyroxine Sodium 0.125 MG Oral Tablet Levothyroxin e Sodium 125 MCG Levothyroxine Sodium 125 MCG 12/20/2019 12:00:00 AM EDT active Levothyroxine Sodium 125 MCG eCW1 ([facility]) Levothyroxine Sodium 0.125 MG Oral Tablet Levothyroxin e Sodium 125 MCG Levothyroxine Sodium 125 MCG 12/20/2019 12:00:00 AM EDT active Levothyroxine Sodium 125 MCG [facility] Levothyroxine Sodium 0.125 MG Oral Tablet Levothyroxin e Sodium 125 MCG Levothyroxine Sodium 125 MCG 12/20/2019 12:00:00 AM EDT active Levothyroxine Sodium 125 MCG e[facility]) Levothyroxine Sodium 0.125 MG Oral Tablet Levothyroxin e Sodium 125 MCG Levothyroxine Sodium 125 MCG 12/20/2019 12:00:00 AM EDT active Levothyroxine Sodium 125 MCG eCW1 [facility]) Levothyroxine Sodium 0.125 MG Oral Tablet Levothyroxin e Sodium 125 MCG Levothyroxine Sodium 125 MCG 12/20/2019 12:00:00 AM EDT active Levothyroxine Sodium 125 MCG e[facility]1 [facility]) 137 mcg 10/29/2019 12:00:00 AM EDT tablet 90 TAKE ONE TABLET BY MOUTH EVERY DAY TAKE ONE TABLET BY MOUTH EVERY DAY SOLD: 11/04/2019 [facility] 50 mg 09/14/2019 12:00:00 AM EST tablet 90 TAKE ONE TABLET BY MOUTH EVERY DAY TAKE ONE TABLET BY MOUTH EVERY DAY SOLD: 01/06/2020 [facility] 137 mcg 09/14/2019 12:00:00 AM EST tablet 90 TAKE ONE TABLET BY MOUTH EVERY DAY TAKE ONE TABLET BY MOUTH EVERY DAY SOLD: 09/16/2019 [facility] 20 mg 09/14/2019 12:00:00 AM EST tablet 90 TAKE ONE TABLET BY MOUTH EVERY DAY TAKE ONE TABLET BY MOUTH EVERY DAY SOLD: 09/16/2019 [facility] 50 mg 09/14/2019 12:00:00 AM EST tablet 90 TAKE ONE TABLET BY MOUTH EVERY DAY TAKE ONE TABLET BY MOUTH EVERY DAY SOLD: 09/16/2019 [facility] 40 mg 07/09/2019 12:00:00 AM EST capsule,delayed release (DR/EC) 90 TAKE ONE CAPSULE BY MOUTH EVERY DAY TAKE ONE CAPSULE BY MOUTH EVERY DAY SOLD: 07/10/2019 [facility] 137 mcg 07/08/2019 12:00:00 AM EST tablet 90 TAKE ONE TABLET BY MOUTH EVERY DAY TAKE ONE TABLET BY MOUTH EVERY DAY SOLD: 07/10/2019 [facility] Insurance Providers Payer name Policy type / Coverage type Policy ID Covered constitution party ID Covered constitution party's relationship to alas Policy Alas Plan Information [facility] [id number] SP [id number] EMEDNY [id number] SP [id number] MEDICARE [id number] SP [id number] Medicare [place] Other 0 Self 0 [place] Other 0 Self 0 [facility] 2 [id number] [place] - [id number] 1 [id number] MEDICAID M [id number] S [id number] [facility] O [id number] S [id number] MEDICAID [id number] SP [id number] SELF PAY MEDICAID [facility] [id number] SP [place] [id number] [facility] MGD MEDICARE [id number] SP [id number] SELF PAY MEDICAID [facility] [id number] [place] [id number] [facility] MGD MEDICARE [id number] SP [id number] SELF PAY MEDICAID [facility] [id number] SP [place] [id number] [facility] MGD MEDICARE [id number] SP [id number] SELF PAY MEDICAID [facility] [id number] SP [place] [id number] [employer] [facility] MGD MEDICARE [id number] SP [id number] SELF PAY MEDICAID [facility] [id number] SP [place] [id number] [employer] [facility] MGD MEDICARE [id number] SP [id number] SELF PAY MEDICAID [facility] [id number] SP [place] [id number] [employer] [facility] MGD MEDICARE [id number] SP [id number] SELF PAY MEDICAID [facility] [id number] SP [place] [id number] [employer] [facility] MGD MEDICARE [id number] SP [id number] SELF PAY MEDICAID [facility] [id number] SP [place] [id number] [facility] MGD MEDICARE [id number] SP [id number] SELF PAY [facility] MGD MEDICARE [id number] SP [id number] MEDICAID [facility] [id number] SP [place] [id number] MEDICAID HEA [id number] S [id number] [facility] HEA [id number] S [id number] SELF PAY [facility] MGD MEDICARE [id number] SP [id number] [facility] MEDICARE [id number] Aliya [id number] MEDICARE [id number] Aliya [id number] MEDICAID [facility] [id number] SP [place] [id number] MEDICARE [id number] Aliya [id number] SELF PAY [facility] MGD MEDICARE [id number] SP [id number] SELF PAY MEDICAID [facility] [id number] SP [place] [id number] [facility] MGD MEDICARE [id number] SP [id number] Medicare Part A of [place] Other 0 Self 0 Medicaid [facility] Other 0 Self 0 SELF PAY MEDICAID [facility] [id number] SP [place] [id number] [employer] [facility]ARE MGD MEDICARE [id number] SP [id number] SELF PAY MEDICAID [facility] [id number] SP [place] [id number] [facility] MGD MEDICARE [id number] SP [id number] Medicare Part A of [place] Other 0 Self 0 Medicaid [facility] Other 0 Self 0 SELF PAY MEDICAID [facility] [id number] SP [place] [id number] [facility] MGD MEDICARE [id number] SP [id number] SELF PAY [facility] MGD MEDICARE [id number] SP [id number] SELF PAY [facility] MGD MEDICARE [id number] SP [id number] Medicaid of [place] Other 0 Self 0 SELF PAY [facility] MGD MEDICARE [id number] SELF PAY [facility] MGD MEDICARE [id number] Problems, Conditions, and Diagnoses Code Display Name Description Problem Type Effective Dates Data Source(s) 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 9 - Iron deficiency anemia, unspecified Diagnosis 07/03/2019 10:29:00 AM [facility] [employer] Surgeries/Procedures Procedure Description Date Indications Data Source(s) Full Mouth Debridement Full Mouth Debridement 05/28/2020 12:00:00 A M [facility] ([facility]) Oral Hygiene/[facility] Oral Hygiene/[facility] 05/28/2020 12:00:00 AM [facility]) Nutritional Counseling Nutritional Counseling 05/28/2020 12:00:00 A M [facility]) Limited Oral Evaluation Limited Oral Evaluation 03/06/2020 12:00:00 AM ED [employer] [facility]) Results ID Date Data Source [id number] 07/03/2019 12:49:00 PM [facility] [employer] Name Value Range Interpretation Code Description Data Laura rce(s) Supporting Document(s) GLYCOSYLATED HGBA1C 6.9 % 4.1-6.5 [facility] Date Data Source [id number] 07/03/2019 12:49:00 PM [facility] Name Value Range Interpretation Code Description Data Laura rce(s) Supporting Document(s) FERRITIN 6.6 NG/ML 22-322 L [facility] ID Date Data Source [id number] 07/03/2019 12:49:00 PM EST [facility] Name Value Range Interpretation Code Description Data Laura rce(s) Supporting Document(s) TRIGLYCERIDES 79 MG/DL 45-150 N [facility] CHOLESTEROL 109 MG/DL 125-200 L [facility] [employer] LDL CHOLESTEROL 59 MG/DL 50-130 N [facility] [employer] HDL CHOLESTEROL 34 MG/DL 32-96 N [facility] [employer] CHOL/HDL RATIO 3.2 0-4.3 N [facility] ID Date Data Source [id number] 07/03/2019 12:49:00 PM EST [facility] Name Value Range Interpretation Code Description Data Laura rce(s) Supporting Document(s) TSH 0.143 uIU/ML 0.470-4.200 L [facility] [employer] Patients should not be tested for 71 ho urs post fluorescein dye angiography. A false depression of result may occur. Procedure Social History Code Duration Value Status Description Data Source(s ) Smoking 01/03/2020 12:00:00 AM EDT Never Smoker completed Never S moker [facility] ([facility]) Smoking 01/03/2020 12:00:00 AM EDT Never Smoker completed Never S moker eCW1 ([facility]) Smoking 01/03/2020 12:00:00 AM EDT Never Smoker completed Never S moker eCW1 ([facility]) Smoking 01/03/2020 12:00:00 AM EDT Never Smoker completed Never S moker eCW1 ([facility]) Smoking 01/03/2020 12:00:00 AM EDT Never Smoker completed Never S moker eCW1 ([facility]) Smoking 01/03/2020 12:00:00 AM EDT Never Smoker completed Never S moker eCW1 ([facility]) Smoking 01/03/2020 12:00:00 AM EDT Never Smoker completed Never S moker eCW1 ([facility]) Smoking 01/03/2020 12:00:00 AM EDT Never Smoker completed Never S moker eCW1 ([facility]) Smoking 12/13/2019 12:00:00 AM EDT Never Smoker completed Never S christopher eCW1 ([facility]) Vital Signs ID Date Data Source UNK Name Value Range Interpretation Code Description Data Source(s) Diastolic blood pressure 74 mm[Hg] 74 mm[Hg] eCW1 [facility]) Systolic blood pressure 128 mm[Hg] 128 mm[Hg] e CW1 ([facility]) Body temperature 97.6 [degF] 97.6 [degF] [facility]) Respiratory rate 18 /min 18 /min eCW1 ([facility]) Heart rate 103 /min 103 /min eCW1 ([facility]) Body mass index (BMI) [Ratio] 20.32 kg/m2 20.32 kg/m2 eCW1 [facility]) Body height 64 [in_i] 64 [in_i] eCW1 ([facility]) Body weight 118.4 [lb_av] 118.4 [lb_av] eCW1 ([facility]) Patient Treatment Plan of Care Planned Activity Planned Date Details Description Data Source (s) chlorhexidine gluconate 1.2 MG/ML Mouthwash [Peridex] 03/06/2020 12:00:00 AM EDT [facility] ([facility]) Amitriptyline Hydrochloride 25 MG Oral Tablet 01/22/2020 12:00:00 A M EDT eCW[facility]) Amitriptyline Hydrochloride 25 MG Oral Tablet 01/22/2020 12:00:00 A M EDT eCW1 [facility]) Amitriptyline Hydrochloride 25 MG Oral Tablet 01/22/2020 12:00:00 A M EDT eCW1 ([facility]) Amitriptyline Hydrochloride 25 MG Oral Tablet 01/22/2020 12:00:00 A M EDT eCW1 ([facility]) Amitriptyline Hydrochloride 25 MG Oral Tablet 01/22/2020 12:00:00 A M EDT eCW1 ([facility]) Amitriptyline Hydrochloride 25 MG Oral Tablet 01/22/2020 12:00:00 A M EDT eCW1 [facility]) Amitriptyline Hydrochloride 10 MG Oral Tablet 01/03/2020 12:00:00 A M EDT eCW1 [facility]) Amitriptyline Hydrochloride 10 MG Oral Tablet 01/03/2020 12:00:00 A M EDT eCW1 ([facility]) Levothyroxine Sodium 0.125 MG Oral Tablet 12/20/2019 12:00:00 AM ED T eCW1 ([facility]) Levothyroxine Sodium 0.125 MG Oral Tablet 12/20/2019 12:00:00 AM ED T eCW1 ([facility]) Levothyroxine Sodium 0.125 MG Oral Tablet 12/20/2019 12:00:00 AM ED T eCW1 ([facility]) Levothyroxine Sodium 0.125 MG Oral Tablet 12/20/2019 12:00:00 AM ED T eCW1 ([facility]) Levothyroxine Sodium 0.125 MG Oral Tablet 12/20/2019 12:00:00 AM ED T eCW1 ([facility]) Levothyroxine Sodium 0.125 MG Oral Tablet 12/20/2019 12:00:00 AM ED T eCW1 ([facility]) Levothyroxine Sodium 0.125 MG Oral Tablet 12/20/2019 12:00:00 AM ED T eCW1 ([facility]) Levothyroxine Sodium 0.125 MG Oral Tablet 12/20/2019 12:00:00 AM ED T eCW1 ([facility])
--- OUTSIDE RECORDS SUMMARY | 2020-08-08 02:31 | CCD ---
Author Author [facility] Organization [facility] Address Unknown Phone Unavailable Care Team Providers Care Lusterer Name Role Phone Odette-Tartell, Lyric Unavailable PROBLEMS Type Condition ICD9-CM Code IAW17-CU Code Onset Dates Condition S tatus SNOMED Code Notes Problem Depression, unspecified depression type F32.9 Active 59912586 Problem Insomnia, unspecified type G47.00 Active 65981 2000 Problem Diabetes mellitus type 2 in nonobese E11.9 Act andrea [id number] Problem Hypothyroidism, unspecified type E03.9 Active 38987466 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 13624 8001 ALLERGIES No Known Allergies ENCOUNTERS from 1950 to 2020-05-20 Encounter Location Date Provider Diagnosis [address] [place] [address] Apr, Lyric Odette-Tartell IMMUNIZATIONS No Information SOCIAL HISTORY [...] MEDICATIONS Medication SIG (Take, Route, Frequency, Duration) Start Date En d Date Status Omeprazole 40 MG 1 capsule 30 minutes before morning meal Orally Once a day for 30 day(s) Active Ferrous Gluconate 324 (38 Fe) MG 1 tablet with water o r juice between meals Orally Once a day for 90 days Active Amitriptyline HCl 25 MG 1 tablet at bedtime Orally Once a da y for 30 day(s) Jan, Active Vitamin D 50 MCG (1999 UT) 1 capsule Orally Once a day for 30 day(s ) Active Gabapentin 100 MG 1 capsule Orally [...] on an empty stomach Orally four times wilfredo y Active Blood Glucose Test - 1 strip In Vitro twice daily Active Januvia 50 MG 1 tablet Orally Daily for 90 days Active GlipiZIDE 10 MG 1 tablet 30 minutes before b reakfast Orally twice daily for 90 days Active Simvastatin 20 MG 1 tablet in the evening Orally Once a day for 90 days Active PROCEDURES No Information RESULTS No Results REASON FOR VISIT refills MEDICAL (GENERAL) HISTORY Type Description Date Medical [...] Insured Coverage Start Date Coverage End Date MEDICAID [employer] [address] [facility] [id number] PEACE,HAYDEE self [facility] [id number] [facility] [address] PEACE,HAYDEE self
[2020-08-08] MEDS ORDERED: LEVO125T4 (02:36)
[2020-08-08] MEDS ORDERED: LOPE1CAP5 (02:36)
[2020-08-08] MEDS ORDERED: METF10004 (02:36)
[2020-08-08] MEDS ORDERED: SITA50TAB (02:36)
[2020-08-08] MEDS ORDERED: GLIP10TA6 (02:36)
[2020-08-08] MEDS ORDERED: FERR32TA (02:36)
[2020-08-08] MEDS ORDERED: VITA200016 (02:36)
[2020-08-08] MEDS ORDERED: SIMV20TA22 (02:36)
[2020-08-08] MEDS ORDERED: NS 1,000 ML IV ONE (03:00)
[2020-08-08 03:47] LABS: BASO % 0.3 % (0.0-1.0); EOS % 1.2 % (0.0-3.0); HEMOGLOBIN 12.1 g/dl (12.0-15.5); LYMPH # 0.9 10^3/uL (1.5-5.0); LYMPH % 27.6 % (24.0-44.0); MEAN CORPUSCULAR HEMOGLOBIN 26.1 pg (27.0-33.0); MEAN CORPUSCULAR VOLUME 84.2 fl (80.0-96.0); MONO # 0.3 10^3/uL (0.0-0.8); MONO % 9.7 % (0.0-5.0); NEUTROPHILS % 60.3 % (36.0-66.0); PLATELET COUNT, AUTOMATED 220 10^3/uL (150-450); RED BLOOD COUNT 4.63 10^6/uL (4.00-5.40); WHITE BLOOD COUNT 3.3 10^3/uL (4.0-10.0)
[2020-08-08 03:56] LABS: INR 0.96
[2020-08-08 03:57] LABS: PARTIAL THROMBOPLASTIN TIME 30.7 SECONDS (24.2-38.5)
[2020-08-08 03:59] LABS: D-DIMER QUANT 2862.39 ng/ml (<500)
[2020-08-08 04:18] LABS: ALBUMIN 3.2 GM/DL (3.2-5.2); ALT/SGPT 17 U/L (12-78); BILIRUBIN,TOTAL 0.4 MG/DL (0.2-1.0); BLOOD UREA NITROGEN 15 MG/DL (7-18); C REACTIVE PROTEIN QUANTITATIV 7.42 MG/DL (0.00-0.30); CALCIUM LEVEL 8.5 MG/DL (8.8-10.2); CARBON DIOXIDE LEVEL 26 MEQ/L (21-32); CHLORIDE LEVEL 106 MEQ/L (98-107); CK-MB VALUE MASS 1.3 NG/ML (<3.6); CPK CREATINE PHOSPHOKINASE 43 U/L (26-192); CREATININE FOR GFR 0.56 MG/DL (0.55-1.30); FERRITIN 93 NG/ML (8-252); GLOMERULAR FILTRATION RATE > 60.0 (>39); GLUCOSE, FASTING 141 MG/DL (70-100); LDH LACTATE DEHYDROGENASE 275 U/L (84-246); MB/CK RELATIVE INDEX 3.02 (< OR =4); POTASSIUM SERUM 3.3 MEQ/L (3.5-5.1); SODIUM LEVEL 139 MEQ/L (136-145); TOTAL PROTEIN 6.5 GM/DL (6.4-8.2); TROPONIN I < 0.02 NG/ML (< 0.10)
--- NOTE | 2020-08-08 04:25 | REPVR ---
PROCEDURE INFORMATION: Exam: XR Chest, 1 View Exam date and time: 08/08/2020 3:20 AM Age: 69 years old Clinical indication: Shortness of breath; Additional info: Coronavirus workup TECHNIQUE: Imaging protocol: XR of the chest Views: 1 view. COMPARISON: DX CHEST 2 VIEW 12/13/2019 4:13 PM FINDINGS: Lungs: There is nonspecific streaky like infiltrates in the left mid to lower lung zone in addition to mild infiltrate in the lateral right lung base. Pleural space: Unremarkable. No pleural effusion. No pneumothorax. Heart/Mediastinum: The cardiomediastinal silhouette is magnified. Vasculature: There is mild aortic arch calcification. Bones/joints: Unremarkable. IMPRESSION: Nonspecific left mid to lower lung zone and lateral right lung base infiltrates. Electronically signed by: Ion Walsh On 08/08/2020 04:24:48 AM
[2020-08-08 04:34] LABS: RSV AMPLIFICATION NEGATIVE (NEGATIVE)
--- OUTSIDE RECORDS SUMMARY | 2020-08-08 04:37 | CCD ---
Author Author [facility] Organization [facility] Address Unknown Phone Unavailable Care Team Providers Care Global Coordinator Name Role Phone Cassius Jc MD Unavailable [...] Unavailable Porfirio Bang MD Unavailable Unavailable Michelle [facility], Wanda Unavailable Saini Dator, Cassius Aguayo [...] Saini Dator, Cassius Aguayo MD Unavailable Unavailable Siani Dator, Cassius Aguayo MD Unavailable Unavailable Saini [...] Cassius Aguayo MD Unavailable Unavailable Saini Dator, Csasius Aguayo MD Unavailable Unavailable Saini Dator, Cassius [...] LANIER Unavailable Unavailable Saini Dator, S Dede LAINER Unavailable Unavailable Saini Dator, S Dede LANIER Unavailable Unavailable Abdulkadir Kwok MD Unavailable Unavailable Abdulkadir Kwok MD Unavailable Unavailable Abdulkadir Kwok MD Unavailable Unavailable Abdulkadir Kwok MD Unavailable Unavailable Abdulkadir Kwok MD Unavailable Unavailable Abdulkadir Kwok MD Unavailable Unavailable Abdulkadir Kwok MD Unavailable Unavailable bAdulkadir Kwok MD Unavailable Unavailable Abdulkadir Kwok MD [...] Sundar, Panchal Ajoy MD Unavailable Unavailable Sundar, Pancahl Ajoy MD Unavailable Unavailable Sundar, Panchal Ajoy MD Unavailable Unavailable Sundar, Panchal Ajoy MD Unavailable Unavailable Sundar, Panchal Ajoy MD Unavailable Unavailable Sundar, Panchal Ajoy MD Unavailable Unavailable Sundar, Panchal Ajoy MD Unavailable Unavailable Sundar, Panchal Ajoy MD Unavailable Unavailable Sundar, Apnchal Ajoy MD Unavailable Unavailable Sundar, Panchal Ajoy [...] is protected by Article 27-F of the [facility] Public Health law. If you continue you may have access to information: Regarding HIV / AIDS; Provided by facilities licensed or operated by the [facility] Office of Mental Health; or Provided by the [facility] Office for People With Developmental Disabilities. If such information is present, then the following [facility] mandated warning applies: This information has [...] law may result in a fine or shelter sentence or both. A general authorization for the release of medical or other information is NOT sufficient authorization for further disc losure. Advance Directives Directive Description Director Diversity Product Marketing Executive Status Observation Descr iption Data Source(s) Ebola Screening Performed completed Ebol a Screening Performed [facility] ([facility]) Note: Within the last month, have you tr aveled outside of the [place]? -NO Encounters Encounter Providers Location Date Indications Data Source(s ) Unknown [address] [facility] [address] 08/06/2020 12:00:00 AM EST eCW1 ([facility]) Unknown [address] [facility] [place] [address] 08/06/2020 12:00:00 AM EST eCW1 ([facility]) Unknown [address] [facility] [place] [address] 08/06/2020 12:00:00 AM EST eCW1 ([facility]) Unknown [address] [facility] [place] [address] 06/15/2020 12:00:00 AM EST eCW1 ([facility]) Unknown<td ID="encounterTypeDescriptionI D0">H Adult Prophy</td><td>Wanda Martinez [facility]</td><td>[facility]</td><td>05/28/2020</td><td></td> Attender: Wanda Martinez [facility] 05/28/2020 09:38:00 AM EST - 05/28/2020 10:53:00 AM EST [facility] ([facility]) Unknown [address] [facility] [address] 05/20/2020 12:00:00 AM EDT eCW1 ([facility]) Unknown<td ID="encounterTypeDescriptionI D1">D Dental Office Visit - 30</td><td>Kaylee Smith DDS</td><td>[facility]</td><td>03/06/2020</td><td></td> Attender: Kaylee Smith DDS [facility] 03/06/2020 02:41:00 PM EDT - 03/06/2020 03:18:00 PM EDT [facility] ([facility]) TeleMedicine Phone E/M by Phys 11-20 Min [address] [place] [address] 01/22/2020 12:00:00 AM EDT eCW1 ([facility]) Outpatient 01/08/2020 11:31:00 AM EDT [facility] Unknown [address] [facility] [address] 01/07/2020 12:00:00 AM EDT eCW1 ([facility]) Unknown [address] [facility] [address] 01/03/2020 12:00:00 AM EDT eCW1 ([facility]) Unknown [address] [facility] [place] [address] 12/20/2019 12:00:00 AM EDT eCW1 ([facility]) Outpatient [address] [facility] [address] 12/13/2019 12:00:00 AM EDT eCW1 ([facility]) Outpatient Attender: Porfirio Ignacio nder: Rocio Leo PAAttender: Jordan Kwok MDReferrer: Dede Snowden MD 10/04/2019 12:00:0 0 PM EDT [facility] G[facility]D Outpatient Attender: Dede Snowden MD 2018 10:29:00 AM EST ohc/lab [facility] ohc/lab Immunizations Vaccine Date Status Description Data [...] gluconate 1 .2 MG/ML Mouthwash [Peridex] [facility] ([facility]) Metformin hydrochloride 1000 MG Oral Tablet [...] active Amitriptyline HCl 25 MG e CW1 ([facility]) Amitriptyline Hydrochloride 25 MG Oral Tablet Amitript yline HCl 25 MG Amitriptyline HCl 25 MG 01/22/2020 12:00:00 AM EDT 1.0 {tablet_at_b edtime} active Amitriptyline HCl 25 MG e 1 ([facility]) Amitriptyline Hydrochloride 25 MG Oral Tablet Amitript yline HCl 25 MG Amitriptyline HCl 25 MG 01/22/2020 12:00:00 AM EDT 1.0 {tablet_at_b edtime} active Amitriptyline HCl 25 MG e 1 ([facility]) Amitriptyline Hydrochloride 25 MG Oral Tablet Amitript yline HCl 25 MG Amitriptyline HCl 25 MG 01/22/2020 12:00:00 AM EDT 1.0 {tablet_at_b edtime} active Amitriptyline HCl 25 MG e 1 ([facility]) 137 mcg 01/22/2020 12:00:00 AM EDT tablet [...] active Amitriptyline HCl 25 MG e 1 ([facility]) Amitriptyline Hydrochloride 25 MG Oral Tablet Amitript yline HCl 25 MG Amitriptyline HCl 25 MG 01/22/2020 12:00:00 AM EDT 1.0 {tablet_at_b edtime} active Amitriptyline HCl 25 MG e 1 ([facility]) 10 mg 01/21/2020 12:00:00 AM EDT tablet [...] ONE TABLET BY MOUTH EVERY DAY 30 HI NUTES BEFORE BREAKFAST SOLD: 01/13/2020 [facility] [...] active Amitriptyline HCl 10 MG e CW1 ([facility]) 10 mg 01/03/2020 12:00:00 AM EDT tablet 30 TAKE ONE TABLET BY MOUTH EVERY DAY AT BEDTIME TAKE ONE TABLET BY MOUTH EVERY DAY AT BEDTIME SOLD: 01/06/2020 [facility] Amitriptyline Hydrochloride 10 MG Oral Tablet Amitript yline HCl 10 MG Amitriptyline HCl 10 MG 01/03/2020 12:00:00 AM EDT 1.0 {tablet_at_b edtime} active Amitriptyline HCl 10 MG e CW1 ([facility]) 125 mcg 12/21/2019 12:00:00 AM EDT tablet 30 TAKE ONE TABLET BY MOUTH EVERY MORNING ON AN EMPTY STOMACH TAKE ONE TABLET BY MOUTH EVERY MORNING O N AN EMPTY STOMACH SOLD: 12/23/2019 [facility] Levothyroxine Sodium 0.125 MG Oral Tablet Levothyroxin e Sodium 125 MCG Levothyroxine Sodium 125 MCG 12/20/2019 12:00:00 AM EDT active Levothyroxine Sodium 125 MCG eCW1 ([facility]) Levothyroxine Sodium 0.125 MG Oral Tablet Levothyroxin e Sodium 125 MCG Levothyroxine Sodium 125 MCG 12/20/2019 12:00:00 AM EDT active Levothyroxine Sodium 125 MCG eCW1 ([facility]) Levothyroxine Sodium 0.125 MG Oral Tablet Levothyroxin e Sodium 125 MCG Levothyroxine Sodium 125 MCG 12/20/2019 12:00:00 AM EDT active Levothyroxine Sodium 125 MCG eCW1 ([facility]) Levothyroxine Sodium 0.125 MG Oral Tablet Levothyroxin e Sodium 125 MCG Levothyroxine Sodium 125 MCG 12/20/2019 12:00:00 AM EDT active Levothyroxine Sodium 125 MCG eCW1 ([facility]) Levothyroxine Sodium 0.125 MG Oral Tablet Levothyroxin e Sodium 125 MCG Levothyroxine Sodium 125 MCG 12/20/2019 12:00:00 AM EDT active Levothyroxine Sodium 125 MCG eCW1 ([facility]) Levothyroxine Sodium 0.125 MG Oral Tablet Levothyroxin e Sodium 125 MCG Levothyroxine Sodium 125 MCG 12/20/2019 12:00:00 AM EDT active Levothyroxine Sodium 125 MCG eCW1 ([facility]) Levothyroxine Sodium 0.125 MG Oral Tablet Levothyroxin e Sodium 125 MCG Levothyroxine Sodium 125 MCG 12/20/2019 12:00:00 AM EDT active Levothyroxine Sodium 125 MCG eCW1 ([facility]) Levothyroxine Sodium 0.125 MG Oral Tablet Levothyroxin e Sodium 125 MCG Levothyroxine Sodium 125 MCG 12/20/2019 12:00:00 AM EDT active Levothyroxine Sodium 125 MCG eCW1 ([facility]) Levothyroxine Sodium 0.125 MG Oral Tablet Levothyroxin e Sodium 125 MCG Levothyroxine Sodium 125 MCG 12/20/2019 12:00:00 AM EDT active Levothyroxine Sodium 125 MCG eCW1 ([facility]) Levothyroxine Sodium 0.125 MG Oral Tablet Levothyroxin e Sodium 125 MCG Levothyroxine Sodium 125 MCG 12/20/2019 12:00:00 AM EDT active Levothyroxine Sodium 125 MCG eCW1 ([facility]) 137 mcg 10/29/2019 12:00:00 AM EDT tablet [...] type / Coverage type Policy ID Covered libertarian ID Covered libertarian's relationship to alas Policy Alas Plan Information [facility] [id number] SP [id number] [place] [id number] SP [id number] MEDICARE [id number] SP [id number] Medicare Part A of [place] Other 0 Self 0 Medicaid of [place] Other 0 Self 0 [facility] 2 [id number] 1 [id number] [place] - [id number] 1 [id number] MEDICAID M [id number] S [id number] [facility]) O [id number] S [id number] MEDICAID [id number] SP [id number] SELF PAY MEDICAID [facility] [id number] [place] [id number] [facility] MGD MEDICARE [id number] SP [id number] SELF PAY MEDICAID [facility] [id number] SP [place] [id number] [facility] MGD MEDICARE [id number] SP [id number] SELF PAY MEDICAID [facility] [id number] [place] [id number] UNITED HEALTHCARE MGD MEDICARE [id number] SP [id number] SELF PAY MEDICAID [facility] [id number] SP [place] [id number] UNITED HEALTHCARE MGD MEDICARE [id number] SP [id number] SELF PAY MEDICAID [facility] [id number] SP [place] [id number] UNITED HEALTHCARE MGD MEDICARE [id number] SP [id number] SELF PAY MEDICAID [facility] [id number] SP [place] [id number] UNITED HEALTHCARE MGD MEDICARE [id number] SP [id number] SELF PAY MEDICAID [facility] [id number] SP [place] [id number] UNITED HEALTHCARE MGD MEDICARE [id number] SP [id number] SELF PAY MEDICAID [facility] [id number] SP [place] [id number] UNITED HEALTHCARE MGD MEDICARE [id number] SP [id number] SELF PAY [facility] MGD MEDICARE [id number] SP [id number] MEDICAID [facility] [id number] SP [place] [id number] MEDICAID HEA [id number] S [id number] [employer]ARE HEA [id number] S [id number] SELF PAY [employer] [facility] MGD MEDICARE [id number] SP [id number] [facility] MEDICARE [id number] Aliya [id number] MEDICARE [id number] Aliya [id number] MEDICAID [facility] [id number] SP [place] [id number] MEDICARE [id number] Aliya [id number] [id number] SELF PAY [employer] [facility]ARE MGD MEDICARE [id number] SP [id number] SELF PAY MEDICAID [facility] [id number] SP [place] [id number] UNITED HEALTHCARE MGD MEDICARE [id number] SP [id number] Medicare Part A of [place] Other 0 Self 0 Medicaid [facility] Other 0 Self 0 SELF PAY MEDICAID [facility] [id number] SP [place] [id number] UNITED HEALTHCARE MGD MEDICARE [id number] SP [id number] SELF PAY MEDICAID [facility] [id number] SP [place] [id number] UNITED [facility]ALTHCARE MGD MEDICARE [id number] SP [id number] Medicare Part A of [place] Other 0 Self 0 Medicaid [facility] Other 0 Self 0 SELF PAY MEDICAID [facility] [id number] SP [place] [id number] UNITED HE[employer]CARE MGD MEDICARE [id number] SP [id number] SELF PAY [facility]ARE MGD MEDICARE [id number] SP [id number] SELF PAY [facility] MGD MEDICARE [id number] SP [id number] Medicaid of [place] Other 0 Self 0 SELF PAY [facility] MGD MEDICARE [id number] SELF PAY [employer] MGD MEDICARE [id number] Problems, Conditions, and Diagnoses Code Display Name Description Problem Type Effective Dates Data Source(s) 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 Problem 0 12:00:00 AM EDT eCW1 ([facility]) G47.00 [id number] Insomnia, unspecified type Problem 0 12:00:00 AM EDT eCW1 ([facility]) F32.9 [id number] Depression, unspecified depression type P roblem 01/03/2020 12:00:00 AM EDT eCW1 ([facility]) E03.9 [id number] Hypothyroidism, unspecified type Problem 12/13/2019 12:00:00 AM EDT eCW1 ([facility]) E11.9 [id number] Diabetes mellitus type 2 in nonobese Prob marcela 12/13/2019 12:00:00 AM EDT eCW1 ([facility]) D50.9 Iron deficiency anemia, unspecified D50. 9 - Iron deficiency anemia, unspecified Diagnosis 07/03/2019 10:29:00 AM [facility] Surgeries/Procedures Procedure Description Date Indications Data Source(s) Full Mouth Debridement Full Mouth Debridement 05/28/2020 12:00:00 A M [email or web address] ([facility]) Oral Hygiene/[facility] Oral Hygiene/[facility] 05/28/2020 12:00:00 AM [email or web address] [facility]) Nutritional Counseling Nutritional Counseling 05/28/2020 12:00:00 A M [email or web address] [facility]) Limited Oral Evaluation Limited Oral Evaluation 03/06/2020 12:00:00 AM ED [employer] [facility]) Results ID Date Data Source [id number] 07/03/2019 12:49:00 PM [facility] Name Value Range Interpretation Code Description Data Laura rce(s) Supporting Document(s) GLYCOSYLATED HGBA1C 6.9 % 4.1-6.5 H [facility] ID Date Data Source [id number] 07/03/2019 12:49:00 PM EST [facility] Name Value Range Interpretation Code Description Data Laura rce(s) Supporting Document(s) FERRITIN 6.6 NG/ML 22-322 L [facility] ID Date Data Source [id number] 07/03/2019 12:49:00 PM EST [facility] Name Value Range Interpretation Code Description Data Laura rce(s) Supporting Document(s) TRIGLYCERIDES 79 MG/DL 45-150 N [facility] CHOLESTEROL 109 MG/DL 125-200 L [facility] LDL CHOLESTEROL 59 MG/DL 50-130 N [facility] HDL CHOLESTEROL 34 MG/DL 32-96 N [facility] CHOL/HDL RATIO 3.2 0-4.3 N [facility] ID Date Data Source [id number] 07/03/2019 12:49:00 PM EST [facility] Name Value Range Interpretation Code Description Data Laura rce(s) Supporting Document(s) TSH 0.143 uIU/ML 0.470-4.200 L [facility] Patients should not be tested for 71 ho urs post fluorescein dye angiography. A false depression of result may occur. Procedure Social History Code Duration Value Status Description Data Source(s ) Smoking 01/03/2020 12:00:00 AM EDT Never Smoker completed Never S moker eCW1 ([facility]) Smoking 01/03/2020 12:00:00 AM EDT Never Smoker completed Never S moker eCW1 ([facility]) Smoking 01/03/2020 12:00:00 AM EDT Never Smoker completed Never S moker eCW1 ([facility]) Smoking 01/03/2020 12:00:00 AM EDT Never Smoker completed Never S moker eCW1 ([facility]) Smoking 01/03/2020 12:00:00 AM EDT Never Smoker completed Never S moker eCW1 ([facility]) Smoking 01/03/2020 12:00:00 AM EDT Never Smoker completed Never S moker eCW1 ([facility]) Smoking 01/03/2020 12:00:00 AM EDT Never Smoker completed Never S moker eCW1 ([facility]) Smoking 01/03/2020 12:00:00 AM EDT Never Smoker completed Never S moker eCW1 ([facility]) Smoking 12/13/2019 12:00:00 AM EDT Never Smoker completed Never S christopher eCW1 ([facility]) Vital Signs ID Date Data Source UNK Name Value Range Interpretation Code Description Data Source(s) Diastolic blood pressure 74 mm[Hg] 74 mm[Hg] eCW1 ([facility]) Systolic blood pressure 128 mm[Hg] 128 mm[Hg] e CW1 ([facility]) Body temperature 97.6 [degF] 97.6 [degF] eCW1 ( [facility]) Respiratory rate 18 /min 18 /min eCW1 ([facility]) Heart rate 103 /min 103 /min eCW1 ([facility]) Body mass index (BMI) [Ratio] 20.32 kg/m2 20.32 kg/m2 eCW1 ([facility]) Body height 64 [in_i] 64 [in_i] eCW1 ([facility]) Body weight 118.4 [lb_av] 118.4 [lb_av] eCW1 ([facility]) Patient Treatment Plan of Care Planned Activity Planned Date Details Description Data Source (s) chlorhexidine gluconate 1.2 MG/ML Mouthwash [Peridex] 03/06/2020 12:00:00 AM EDT [facility] ([facility]) Amitriptyline Hydrochloride 25 MG Oral Tablet 01/22/2020 12:00:00 A M EDT eCW1 ([facility]) Amitriptyline Hydrochloride 25 MG Oral Tablet 01/22/2020 12:00:00 A M EDT eCW1 ([facility]) Amitriptyline Hydrochloride 25 MG Oral Tablet 01/22/2020 12:00:00 A M EDT eCW1 ([facility]) Amitriptyline Hydrochloride 25 MG Oral Tablet 01/22/2020 12:00:00 A M EDT eCW1 ([facility]) Amitriptyline Hydrochloride 25 MG Oral Tablet 01/22/2020 12:00:00 A M EDT eCW1 ([facility]) Amitriptyline Hydrochloride 25 MG Oral Tablet 01/22/2020 12:00:00 A M EDT eCW1 ([facility]) Amitriptyline Hydrochloride 10 MG Oral Tablet 01/03/2020 12:00:00 A M EDT eCW1 ([facility]) Amitriptyline Hydrochloride 10 MG Oral Tablet 01/03/2020 12:00:00 A M EDT eCW1 ([facility]) Levothyroxine Sodium 0.125 MG Oral Tablet 12/20/2019 12:00:00 AM ED T eCW1 ([facility]) Levothyroxine Sodium 0.125 MG Oral Tablet 12/20/2019 12:00:00 AM ED T eCW1 ([facility]) Levothyroxine Sodium 0.125 MG Oral Tablet 12/20/2019 12:00:00 AM ED T eCW1 ([facility]) Levothyroxine Sodium 0.125 MG Oral Tablet 12/20/2019 12:00:00 AM ED T eCW1 ([facility]) Levothyroxine Sodium 0.125 MG Oral Tablet 12/20/2019 12:00:00 AM ED T eCW1 ([facility]) Levothyroxine Sodium 0.125 MG Oral Tablet 12/20/2019 12:00:00 AM ED T eCW1 ([facility]) Levothyroxine Sodium 0.125 MG Oral Tablet 12/20/2019 12:00:00 AM ED T eCW1 ([facility]) Levothyroxine Sodium 0.125 MG Oral Tablet 12/20/2019 12:00:00 AM ED T eCW1 ([facility])
== END 2020-08-08 06:39 | disposition home or self-care (01) ==
LOC: M ED 02:23
DX: U07.1 COVID-19 (principal); Z79.899 Other long term (current) drug therapy; Z79.890 Hormone replacement therapy; Z79.84 Long term (current) use of oral hypoglycemic drugs
CPT/HCPCS: 71045; 80053; 81001; 82550; 82553; 82728; 83615; 84145; 84484; 85025; 85379; 85610; 85730; 86140; 87631; 96360; 99282; J2060; M0239

== ENCOUNTER 2020-08-08 06:57 | Outpatient (CLI) | payer MEDICARE, MEDICAID ==
[2020-08-08] VITALS (7 sets, daily range): BP systolic 108–140; BP diastolic 51–65
[~2020-08-08 06:57] MED LIST: ALBUTEROL 90 MCG/ACT 8GM HFA INHALER INH PRN; ALBUTEROL SULFATE 2.5 MG/0.5 ML INH NEB SOLN INH PRN; EPINEPHrine INJ 1 MG/ML 1ML AMP IM PRN; FERR32TA; GLIP10TA6; LEVO125T4; LOPE1CAP5; METF10004; SIMV20TA22; SITA50TAB; VITA200016; diphenhydrAMINE 50MG/ML VIAL (J1200) IV PRN; methylPREDNISolone 125MG 2ML VIAL IV PRN
--- NOTE | 2020-08-08 07:15 | CR.PDOC ---
General Date of Consultation: Aug 08, 2020 Referring Provider: KELLIE BROCK MD Primary Care Physician: KHALIDA DILLON DO Attending Physician: Declan Pérez MD Consultation REASON FOR CONSULTATION/CHIEF COMPLAINT: COVID 19 with mild to moderate symptoms. HISTORY OF PRESENT ILLNESS: I was consulted by the emergency department to speak to Ms. Hand about a bamlanivimab infusion. She has laboratory confirmed COVID- 19, but does not have a severe infection that would require hospitalization. ALLERGIES: Please see below. HOME MEDICATIONS: Please see below. RISK FACTORS: 1. Age over 60. 2. Type 2 diabetes mellitus. PHYSICAL EXAMINATION: VITAL SIGNS: Please see below. GENERAL APPEARANCE: She appeared somewhat uncomfortable on the ER stretcher when I entered the room. In no acute distress. She was able to make it clear to me she does not speak Palestinian. I ascertain she speaks Kiswahili. She requested I talked to her , Jignesh, about her clinical condition. PSYCHIATRIC: Alert and oriented 3. Judgment intact. After I left the room nursing reports to me that she pulled her IV out. I did return to assess what the problem was. It seems she was unhappy with the blood pressure cuff squeezing her arm and decided to tear everything off to make it stop. LABORATORY DATA: Please see below. ASSESSMENT/PLAN: 1. COVID 19 with mild to moderate symptoms. Per the patient's request I spoke to her , Jignesh, in detail with regards to the risks and benefits of a bamlanivimab infusion. We finished talking he suggested his receive the infusion. I spoke to her again and explained that I had discussed this with him and he recommended she take this. She agreed to sign form and her consent was documented. 2. Anxiety in the healthcare setting. It is fairly obvious that she is uncomfortable in this environment. I made it clear to her during her second discussion that she will need her vitals monitored during the infusion. In order to ease her discomfort and to preserve the lines necessary for her treatment I did pretreat her with a small dose of Ativan. Allergies Coded Allergies: No Known Allergies (Unverified , 08/08/20) Home Medications Miscellaneous Medications Cholecalciferol (Vitamin D3) (Vitamin D3) 50 Mcg Capsule, (Reported) Ferrous Gluconate (Ferrous Gluconate) 324 Mg Tablet, (Reported) Glipizide (Glipizide) 10 Mg Tablet, (Reported) Levothyroxine Sodium (Levothyroxine Sodium) 125 Mcg Tablet, (Reported) Loperamide HCl (Loperamide) 2 Mg Capsule, (Reported) Metformin HCl (Metformin HCl) 1,000 Mg Tablet, (Reported) Simvastatin (Simvastatin) 20 Mg Tablet, (Reported) Sitagliptin (Januvia) 50 Mg Tablet, (Reported) Declan Pérez MD Aug 08, 2020 07:15
[2020-08-08] MEDS ORDERED: NS 1,000 ML IV SCH (07:30)
[2020-08-08] MEDS ORDERED: LORazepam 2 MG/ML VIAL IV ONE (08:00)
[2020-08-08] MEDS ORDERED: BAMLANIVIMAB 700 MG in NS 250 ML IV ONE (08:00)
== END 2020-08-08 11:57 | disposition home or self-care (01) ==
LOC: M ICU 06:57 → M OPCLIICU 06:57
PROVIDERS: ATTEND Family Medicine
DX: U07.1 COVID-19 (principal)

== ENCOUNTER → 2020-09-02 | Outpatient (REF) | payer MEDICARE, MEDICAID ==
[~2020-09-02] MED LIST changes: -ALBUTEROL 90 MCG/ACT 8GM HFA INHALER INH PRN; -ALBUTEROL SULFATE 2.5 MG/0.5 ML INH NEB SOLN INH PRN; -EPINEPHrine INJ 1 MG/ML 1ML AMP IM PRN; -diphenhydrAMINE 50MG/ML VIAL (J1200) IV PRN; -methylPREDNISolone 125MG 2ML VIAL IV PRN
== END ==
LOC: M SFHCADAM 11:05
PROVIDERS: ATTEND Family Medicine
DX: R07.89 Other chest pain (principal)

== ENCOUNTER → 2020-09-02 | Outpatient (CLI) | payer MEDICARE, MEDICAID ==
--- NOTE | 2020-09-02 17:47 | REP ---
INDICATION: CHEST TIGHTNESS COMPARISON: 08/08/2020 TECHNIQUE: PA and lateral. FINDINGS: The mediastinum and cardiac silhouette are stable and within normal limits. Lung varghese demonstrate diffuse chronic interstitial changes with superimposed scattered bilateral infiltrates mildly increased from prior examination. No effusion. No pneumothorax. Skeletal structures intact. IMPRESSION: Moderate to significant bilateral airspace disease appears slightly increased compared to 08/08/2020. <Electronically signed by Quique Miranda > 09/02/20 [id number]
== END ==
LOC: M ADAMS 11:19
PROVIDERS: ATTEND Family Medicine
DX: R91.8 Other nonspecific abnormal finding of lung field (principal); R07.89 Other chest pain
CPT/HCPCS: 71046; 83880; G0463

== ENCOUNTER → 2020-11-02 | Outpatient (REF) | payer MEDICARE, MEDICAID ==
[2020-11-02 19:29] LABS: HEMOGLOBIN A1c 7.6 %
[2020-11-02 19:41] LABS: BLOOD UREA NITROGEN 13 MG/DL (7-18); CALCIUM LEVEL 9.4 MG/DL (8.8-10.2); CARBON DIOXIDE LEVEL 30 MEQ/L (21-32); CHLORIDE LEVEL 103 MEQ/L (98-107); GLOMERULAR FILTRATION RATE > 60.0 (>39); GLUCOSE, FASTING 260 MG/DL (70-100); POTASSIUM SERUM 5.3 MEQ/L (3.5-5.1); SODIUM LEVEL 138 MEQ/L (136-145)
== END ==
LOC: M SFHCADAM 16:01
PROVIDERS: ATTEND Family Medicine
DX: R93.89 Abnormal findings on diagnostic imaging of other specified body structures (principal); E11.9 Type 2 diabetes mellitus without complications
CPT/HCPCS: 80048; 83036; G0463

== ENCOUNTER 2022-01-10 19:40 | Emergency (ER) | payer MEDICARE, MEDICAID ==
[~2022-01-10] VITALS: Ht 165.1 cm; Wt 58.6 kg
[2022-01-10] MEDS ORDERED: PERC5TAB12 PO (22:29)
[2022-01-10] MEDS ORDERED: OXYCODONE/APAP 5MG/325MG(HOME DOSE PACK) PO ONE (22:30)
[2022-01-10 22:59] VITALS: BP 132/84
== END 2022-01-10 23:07 | disposition home or self-care (01) ==
LOC: M ED 19:40
DX: S22.42XA Multiple fractures of ribs, left side, initial encounter for closed fracture (principal); W06.XXXA Fall from bed, initial encounter; Y92.018 Other place in single-family (private) house as the place of occurrence of the external cause; E11.9 Type 2 diabetes mellitus without complications; E03.9 Hypothyroidism, unspecified; E78.5 Hyperlipidemia, unspecified; K21.9 Gastro-esophageal reflux disease without esophagitis; I25.10 Atherosclerotic heart disease of native coronary artery without angina pectoris; Z79.899 Other long term (current) drug therapy; Z79.84 Long term (current) use of oral hypoglycemic drugs; Z79.890 Hormone replacement therapy

== ENCOUNTER → 2022-04-08 | Outpatient (REF) | payer MEDICARE, MEDICAID ==
[~2022-04-08] MED LIST changes: +PERC5TAB12 PO
== END ==
LOC: M SFHCADAM 14:40
PROVIDERS: ATTEND Family Medicine
DX: R07.9 Chest pain, unspecified (principal)

== ENCOUNTER → 2023-05-24 | Outpatient (REF) | payer MEDICARE, MEDICAID ==
[2023-05-24 16:15] LABS: BASO % 0.8 % (0.0-1.0); EOS # 0.1 10^3/uL (0.0-0.5); EOS % 2.3 % (0.0-3.0); HEMATOCRIT 40.5 % (36.0-47.0); LYMPH % 38.3 % (24.0-44.0); MEAN CORPUSCULAR HEMOGLOBIN 28.6 pg (27.0-33.0); MEAN CORPUSCULAR HGB CONC 32.1 g/dl (32.0-36.5); MEAN CORPUSCULAR VOLUME 89.2 fl (80.0-96.0); MONO # 0.5 10^3/uL (0.0-0.8); MONO % 9.3 % (2.0-8.0); NEUTROPHILS # 2.6 10^3/uL (1.5-8.5); NEUTROPHILS % 48.9 % (36.0-66.0); PLATELET COUNT, AUTOMATED 235 10^3/uL (150-450); RED BLOOD COUNT 4.54 10^6/uL (4.00-5.40); WHITE BLOOD COUNT 5.3 10^3/uL (4.0-10.0)
[2023-05-24 16:44] LABS: ALBUMIN 3.6 G/DL (3.2-5.2); ALKALINE PHOSPHATASE 56 U/L (46-116); ALT/SGPT 10 U/L (7.0-40); AST/SGOT 10 U/L (<34); BILIRUBIN,TOTAL 0.6 MG/DL (0.3-1.2); BLOOD UREA NITROGEN 15 MG/DL (9-23); CARBON DIOXIDE LEVEL 26 MMOL/L (20-31); CHLORIDE LEVEL 101 MMOL/L (98-107); CHOLESTEROL LEVEL 142 MG/DL (<200); GLOMERULAR FILTRATION RATE > 60.0 (>39); GLUCOSE, FASTING 268 MG/DL (74-106); LDL CHOLESTEROL 67.8 MG/DL (<100); POTASSIUM SERUM 4.3 MMOL/L (3.5-5.1); SODIUM LEVEL 136 MMOL/L (136-145); TOTAL PROTEIN 6.6 G/DL (5.7-8.2); TRIGLYCERIDES LEVEL 156 MG/DL (<150)
[2023-05-24 16:45] LABS: THYROID STIMULATING HORMONE 3.445 uIU/ML (0.55-4.78)
[2023-05-24 16:46] LABS: FREE T4 1.11 NG/DL (0.89-1.76)
== END ==
LOC: M SFHCADAM 15:15
PROVIDERS: ATTEND Physician Assistant
DX: E11.9 Type 2 diabetes mellitus without complications (principal); E03.9 Hypothyroidism, unspecified; G47.00 Insomnia, unspecified; M19.041 Primary osteoarthritis, right hand; M19.042 Primary osteoarthritis, left hand

== ENCOUNTER → 2023-05-24 | Outpatient (CLI) | payer MEDICARE, MEDICAID | LOC: M ADAMS 15:32 | PROVIDERS: ATTEND Physician Assistant | DX: M19.041 Primary osteoarthritis, right hand (principal); M19.042 Primary osteoarthritis, left hand ==

== ENCOUNTER → 2023-09-11 | Outpatient (CLI) | payer MEDICARE, MEDICAID | LOC: M RAD 15:21 | PROVIDERS: ATTEND Family Medicine | DX: R22.9 Localized swelling, mass and lump, unspecified (principal); R22.32 Localized swelling, mass and lump, left upper limb ==

== ENCOUNTER → 2024-02-07 | Outpatient (REF) | payer MEDICARE, MEDICAID | LOC: M SFHCADAM 16:15 | PROVIDERS: ATTEND Family Medicine | DX: R73.9 Hyperglycemia, unspecified (principal) ==

== ENCOUNTER → 2024-02-08 | Outpatient (REF) | payer MEDICARE, MEDICAID ==
[2024-02-08 13:58] LABS: HEMOGLOBIN A1c 6.8 % (4.0-6.0)
[2024-02-08 14:03] LABS: ALBUMIN 3.7 G/DL (3.2-5.2); ALKALINE PHOSPHATASE 60 U/L (46-116); ALT/SGPT 13 U/L (7.0-40); AST/SGOT < 8 U/L (<34); BILIRUBIN,TOTAL 0.7 MG/DL (0.3-1.2); BLOOD UREA NITROGEN 17 MG/DL (9-23); CALCIUM LEVEL 9.7 MG/DL (8.3-10.6); CARBON DIOXIDE LEVEL 24 MMOL/L (20-31); CHLORIDE LEVEL 107 MMOL/L (98-107); CREATININE FOR GFR 0.49 MG/DL (0.55-1.30); GLOMERULAR FILTRATION RATE > 60.0 (>39); GLUCOSE, FASTING 109 MG/DL (74-106); POTASSIUM SERUM 4.8 MMOL/L (3.5-5.1); SODIUM LEVEL 140 MMOL/L (136-145); TOTAL PROTEIN 6.7 G/DL (5.7-8.2)
== END ==
LOC: M SFHCADAM 10:58
PROVIDERS: ATTEND Family Medicine
DX: E11.9 Type 2 diabetes mellitus without complications (principal)

== ENCOUNTER → 2024-02-28 | Outpatient (CLI) | payer MEDICARE, MEDICAID ==
[~2024-02-28] MED LIST changes: +CITA10TA7 PO; -FERR32TA; +FERR32TA PO; -GLIP10TA6; +GLIP10TA6 PO; -LEVO125T4; +LEVO125T4 PO; -METF10004; +METF10004 PO; -SIMV20TA22; +SIMV20TA22 PO; -SITA50TAB; +SITA50TAB PO; -VITA200016; +VITA200016 PO
== END ==
LOC: M ADAMS 09:26
PROVIDERS: ATTEND Family Medicine
DX: M54.50 Low back pain, unspecified (principal); G44.52 New daily persistent headache (NDPH); Z87.828 Personal history of other (healed) physical injury and trauma

== ENCOUNTER → 2024-02-28 | Outpatient (REF) | payer MEDICARE, MEDICAID ==
[~2024-02-28] MED LIST changes: -CITA10TA7 PO; +FERR32TA; -FERR32TA PO; +GLIP10TA6; -GLIP10TA6 PO; +LEVO125T4; -LEVO125T4 PO; +METF10004; -METF10004 PO; +SIMV20TA22; -SIMV20TA22 PO; +SITA50TAB; -SITA50TAB PO; +VITA200016; -VITA200016 PO
[2024-02-28 14:34] LABS: BLOOD UREA NITROGEN 14 MG/DL (9-23); CALCIUM LEVEL 9.4 MG/DL (8.3-10.6); CARBON DIOXIDE LEVEL 26 MMOL/L (20-31); CHLORIDE LEVEL 103 MMOL/L (98-107); CREATININE FOR GFR 0.48 MG/DL (0.55-1.30); GLOMERULAR FILTRATION RATE > 60.0 (>39); GLUCOSE, FASTING 235 MG/DL (74-106); POTASSIUM SERUM 4.7 MMOL/L (3.5-5.1); SODIUM LEVEL 135 MMOL/L (136-145)
== END ==
LOC: M SFHCADAM 09:23
PROVIDERS: ATTEND Family Medicine
DX: Z87.828 Personal history of other (healed) physical injury and trauma (principal); G44.52 New daily persistent headache (NDPH)

== ENCOUNTER 2024-03-15 09:22 | Day surgery (SDC) | payer MEDICARE, MEDICAID ==
[~2024-03-15] VITALS: Ht 154.9 cm; Wt 53.7 kg
[~2024-03-15 09:22] MED LIST changes: +CITA10TA7 PO; -FERR32TA; +FERR32TA PO; -GLIP10TA6; +GLIP10TA6 PO; -LEVO125T4; +LEVO125T4 PO; -METF10004; +METF10004 PO; -SIMV20TA22; +SIMV20TA22 PO; -SITA50TAB; +SITA50TAB PO; -VITA200016; +VITA200016 PO
[2024-03-15] MEDS: NS 1,000 ML IV ONE (09:51)
[2024-03-15] MEDS ORDERED: LIDOCAINE 2% 100MG/5ML SDV (FOR ANES.) As Ordered ONE (09:55)
[2024-03-15] MEDS ORDERED: propofoL 200 MG/20 ML VIAL As Ordered ONE (09:55)
[2024-03-15 11:24] VITALS: TEMP 97.1
[2024-03-15 11:40] VITALS: BP 119/56; O2SAT 96
== END 2024-03-15 11:53 | disposition home or self-care (01) ==
LOC: M OPP 09:22
PROVIDERS: ATTEND Surgery
DX: Z12.11 Encounter for screening for malignant neoplasm of colon (principal); K51.40 Inflammatory polyps of colon without complications; K64.9 Unspecified hemorrhoids; E11.9 Type 2 diabetes mellitus without complications; E03.9 Hypothyroidism, unspecified; Z79.02 Long term (current) use of antithrombotics/antiplatelets; Z79.84 Long term (current) use of oral hypoglycemic drugs; Z79.890 Hormone replacement therapy

== ENCOUNTER → 2024-03-19 | Outpatient (CLI) | payer MEDICARE, MEDICAID ==
[~2024-03-19] MED LIST changes: +ISOVUE-370 76% 100ML VIAL As Ordered ONE
== END ==
LOC: M RAD 16:16
PROVIDERS: ATTEND Family Medicine
DX: R51.9 Headache, unspecified (principal)
CPT/HCPCS: 70470; Q9967

== ENCOUNTER → 2024-07-25 | Outpatient (REF) | payer MEDICARE, MEDICAID ==
[~2024-07-25] MED LIST changes: +GLIP10TA15 PO; -GLIP10TA6 PO; -ISOVUE-370 76% 100ML VIAL As Ordered ONE
[2024-07-25 17:41] LABS: BASO # 0.1 10^3/uL (0.0-0.2); BASO % 0.8 % (0.0-1.0); EOS # 0.2 10^3/uL (0.0-0.5); EOS % 3.5 % (0.0-3.0); HEMATOCRIT 44.4 % (36.0-47.0); HEMOGLOBIN 13.8 g/dl (12.0-15.5); LYMPH # 2.2 10^3/uL (1.5-5.0); LYMPH % 34.8 % (24.0-44.0); MEAN CORPUSCULAR HEMOGLOBIN 31.7 pg (27.0-33.0); MEAN CORPUSCULAR HGB CONC 31.1 g/dl (32.0-36.5); MEAN CORPUSCULAR VOLUME 102.1 fl (80.0-96.0); MONO # 0.3 10^3/uL (0.0-0.8); NEUTROPHILS # 3.5 10^3/uL (1.5-8.5); NEUTROPHILS % 55.4 % (36.0-66.0); PLATELET COUNT, AUTOMATED 218 10^3/uL (150-450); RED BLOOD COUNT 4.35 10^6/uL (4.00-5.40); WHITE BLOOD COUNT 6.4 10^3/uL (4.0-10.0)
[2024-07-25 17:57] LABS: THYROID STIMULATING HORMONE 3.946 uIU/ML (0.55-4.78); TOTAL 25(OH) VITAMIN D 49.9 NG/ML (20.0-100.0)
[2024-07-25 17:58] LABS: FOLATE > 24.0 NG/ML (>5.4)
[2024-07-25 17:59] LABS: ALBUMIN 4.2 G/DL (3.2-5.2); ALKALINE PHOSPHATASE 57 U/L (35-104); ALT/SGPT 14 U/L (7.0-40); AST/SGOT 14 U/L (<34); BILIRUBIN,TOTAL 0.5 MG/DL (0.3-1.2); BLOOD UREA NITROGEN 14 MG/DL (9-23); CALCIUM LEVEL 10.2 MG/DL (8.3-10.6); CARBON DIOXIDE LEVEL 29 MMOL/L (20-31); CHLORIDE LEVEL 103 MMOL/L (98-107); CREATININE FOR GFR 0.47 MG/DL (0.55-1.30); GLOMERULAR FILTRATION RATE > 60.0 (>39); GLUCOSE, FASTING 125 MG/DL (74-106); POTASSIUM SERUM 4.8 MMOL/L (3.5-5.1); RHEUMATOID FACTOR QUANT < 3.5 IU/ML (<14); SODIUM LEVEL 140 MMOL/L (136-145); TOTAL PROTEIN 7.5 G/DL (5.7-8.2)
[2024-07-25 18:00] LABS: FREE T4 1.33 NG/DL (0.89-1.76); VITAMIN B12 LEVEL 207 PG/ML (211-911)
== END ==
LOC: M SFHCADAM 10:44
PROVIDERS: ATTEND Physician Assistant
DX: M25.511 Pain in right shoulder (principal); G89.29 Other chronic pain; M79.641 Pain in right hand; M79.642 Pain in left hand; M54.6 Pain in thoracic spine; E11.9 Type 2 diabetes mellitus without complications; E03.9 Hypothyroidism, unspecified; Z79.899 Other long term (current) drug therapy

== ENCOUNTER → 2024-07-25 | Outpatient (CLI) | payer MEDICARE, MEDICAID | LOC: M ADAMS 10:44 | PROVIDERS: ATTEND Physician Assistant | DX: R07.9 Chest pain, unspecified (principal); M25.511 Pain in right shoulder; M54.6 Pain in thoracic spine ==

== ENCOUNTER → 2024-09-28 | Outpatient (CLI) | payer MEDICARE, MEDICAID | LOC: M LAB 13:14 | PROVIDERS: ATTEND Nurse Practitioner Acute Care | DX: R06.09 Other forms of dyspnea (principal) ==

== ENCOUNTER → 2024-10-05 | Outpatient (CLI) | payer MEDICARE, MEDICAID ==
[2024-10-05 16:09] LABS: ALBUMIN 3.6 G/DL (3.2-5.2); ALKALINE PHOSPHATASE 61 U/L (35-104); ALT/SGPT 17 U/L (7.0-40); AST/SGOT 10 U/L (<34); BILIRUBIN,TOTAL 0.4 MG/DL (0.3-1.2); BLOOD UREA NITROGEN 12 MG/DL (9-23); CALCIUM LEVEL 9.2 MG/DL (8.3-10.6); CARBON DIOXIDE LEVEL 23 MMOL/L (20-31); CHLORIDE LEVEL 104 MMOL/L (98-107); CREATININE FOR GFR 0.48 MG/DL (0.55-1.30); GLOMERULAR FILTRATION RATE > 60.0 (>39); GLUCOSE, FASTING 237 MG/DL (74-106); POTASSIUM SERUM 5.1 MMOL/L (3.5-5.1); SODIUM LEVEL 139 MMOL/L (136-145); TOTAL PROTEIN 6.7 G/DL (5.7-8.2)
== END ==
LOC: M LAB 14:48
PROVIDERS: ATTEND Nurse Practitioner Acute Care
DX: R06.09 Other forms of dyspnea (principal)

== ENCOUNTER 2024-11-13 10:56 | Emergency (ER) | payer MEDICARE, MEDICAID ==
[~2024-11-13] VITALS: Ht 157.5 cm; Wt 57.0 kg
[2024-11-13] MEDS ORDERED: LIDO5DIS41 TOP (13:51)
[2024-11-13] MEDS ORDERED: ACET-907 PO (13:51)
[2024-11-13 13:57] VITALS: BP 150/68; TEMP 97.8; O2SAT 98
[2024-11-13] MEDS: IBUPROFEN 400MG TAB PO ONE (14:04)
[2024-11-13] MEDS: ACETAMINOPHEN 325 MG TAB PO ONE (14:05)
[2024-11-13] MEDS: LIDOCAINE 5% (LIDODERM) PATCH TD ONE (14:05)
== END 2024-11-13 14:20 | disposition home or self-care (01) ==
LOC: M ED 10:56
DX: S40.011A Contusion of right shoulder, initial encounter (principal); Y92.019 Unspecified place in single-family (private) house as the place of occurrence of the external cause; Y93.9 Activity, unspecified; Y99.9 Unspecified external cause status; W19.XXXA Unspecified fall, initial encounter; E78.00 Pure hypercholesterolemia, unspecified; E03.9 Hypothyroidism, unspecified; F41.9 Anxiety disorder, unspecified; F32.A Depression, unspecified; Z79.1 Long term (current) use of non-steroidal anti-inflammatories (NSAID); Z79.84 Long term (current) use of oral hypoglycemic drugs; Z79.899 Other long term (current) drug therapy

== ENCOUNTER → 2025-03-18 | Outpatient (CLI) | payer MEDICARE, MEDICAID ==
[~2025-03-18] MED LIST changes: +ACET-907 PO; +LIDO1ADH93 TOP
== END ==
LOC: M PLAIMG 12:13
PROVIDERS: ATTEND Orthopaedic Surgery
DX: M75.120 Complete rotator cuff tear or rupture of unspecified shoulder, not specified as traumatic (principal); M67.813 Other specified disorders of tendon, right shoulder; M19.011 Primary osteoarthritis, right shoulder

== ENCOUNTER → 2025-04-12 | Outpatient (CLI) | payer MEDICARE, MEDICAID ==
[2025-04-12 15:26] LABS: ESTIMATED AVERAGE GLUCOSE 183.0 MG/DL (60-110)
== END ==
LOC: M LAB 14:07
PROVIDERS: ATTEND Neuromusculoskeletal Medicine, Sports Medicine
DX: E11.9 Type 2 diabetes mellitus without complications (principal)

== ENCOUNTER → 2025-06-11 | Outpatient (REF) | payer MEDICARE, MEDICAID ==
[2025-06-11 17:30] LABS: ALT/SGPT 16 U/L (7.0-40); AST/SGOT 15 U/L (<34); CALCIUM LEVEL 9.2 MG/DL (8.3-10.6); CARBON DIOXIDE LEVEL 28 MMOL/L (20-31); CHLORIDE LEVEL 100 MMOL/L (98-107); CREATININE FOR GFR 0.56 MG/DL (0.55-1.30); GLOMERULAR FILTRATION RATE > 90.0 (>39); POTASSIUM SERUM 4.6 MMOL/L (3.5-5.1); SODIUM LEVEL 139 MMOL/L (136-145)
[2025-06-11 17:46] LABS: ESTIMATED AVERAGE GLUCOSE 183.0 MG/DL (60-110)
[2025-06-11 17:47] LABS: CREATININE, URINE 108.5 MG/DL; MALB URINE SIEMENS 5.0 MG/L; MAU/CREAT RATIO 4.6 MCG/MG (0.0-30.0)
== END ==
LOC: M SFHCADAM 13:36
PROVIDERS: ATTEND Family Medicine
DX: E11.9 Type 2 diabetes mellitus without complications (principal)